=== PATIENT | male | born 1965 | race Caucasian/White ===

== ENCOUNTER 2018-01-21 16:59 | Emergency (ER) | payer OTHER ==
--- NOTE | 2018-01-21 18:14 | PDOC ---
Rapid Medical Evaluation Time Seen by Provider: 01/21/18 18:09 Medical Evaluation: Allergies Allergy/AdvReac Type Severity Reaction Status Date / Time No Known Allergies Allergy Verified 01/17/18 09:45 01/21/18 18:11 Pt is a 52 y/o M who presents to the ED with abdominal pain. Pt was seen in our ED on 01/17/18 for similar symptoms and had a negative CT scan. States the pain is back. States he had a hard bowel movement today. Denies fevers, chills, n/v/d , frequency, urgency and hematuria Exam: TTP of the LLQ, LUQ, ambulatory, AAOx3 Orders: Labs, urine, x-ray Pt to proceed to ED for further evaluation Discharge Disposition - Diagnosis Abdominal pain - Referrals - Patient Instructions - Post Discharge Activity
[2018-01-21 18:16] VITALS: TEMP 98.5; BMI 24.4
--- NOTE | 2018-01-21 19:16 | PDOC ---
History of Present Illness - General Chief Complaint: Constipation Stated Complaint: ABD PAIN Time Seen by Provider: 01/21/18 18:09 - History of Present Illness Initial Comments: 01/21/18 19:16 Mr. Xiong is a 52 yo male w/ pmh of HTN and CVA w/ right sided facial eye droop who presents for evaluation of abdominal pain today. Patient was evaluated 4 days ago for similar presentation and had negative CT scan, however reports pain came back. Last BM was today however hard and small. Patient currently complaining of left sided abdominal pain; reports he feels constipated although he has continued to have bowel movements. The patient denies chest pain, shortness of breath, headache and dizziness. Denies fever, chills, nausea, vomit, and diarrhea. Denies dysuria, frequency, urgency and hematuria. Allergies: NKDA Past History - Past Medical History Allergies/Adverse Reactions: Allergies Allergy/AdvReac Type Severity Reaction Status Date / Time No Known Allergies Allergy Verified 01/17/18 09:45 Home Medications: Ambulatory Orders Amlodipine Besylate 10 mg PO DAILY 01/17/18 Aspirin [Lo-Dose Aspirin EC] 81 mg PO DAILY 01/17/18 Hydralazine HCl 100 mg PO TID 01/17/18 Labetalol HCl [Normodyne -] 200 mg PO BID 01/17/18 Tramadol HCl 50 mg PO TID #15 tablet MDD 3 01/17/18 cloNIDine HCL 0.2 mg PO TID 01/17/18 Polyethylene Glycol 1000 [Polyethylene Glycol] 17 gm MC BID 01/21/18 Docusate Sodium [Colace] 100 mg PO DAILY #30 capsule 01/22/18 Polyethylene Glycol 3350 [Miralax (For Bowel Prep) -] 17 gm PO DAILY #1 bottle 01/22/18 CVA: Yes (may 05, 2003) COPD: No HTN: Yes - Suicide/Smoking/Psychosocial Hx Smoking History: Never smoked Have you smoked in the past 12 months: No Hx Alcohol Use: No Drug/Substance Use Hx: No Substance Use Type: None Review of Systems - Review of Systems Comments:: 01/21/18 19:18 GENERAL/CONSTITUTIONAL: No fever or chills. No weakness. HEAD, EYES, EARS, NOSE AND THROAT: No change in vision. No ear pain or discharge. No sore throat. CARDIOVASCULAR: No chest pain or shortness of breath RESPIRATORY: No cough, wheezing, or hemoptysis. GASTROINTESTINAL: +Constipation with abdominal pain as described. GENITOURINARY: No dysuria, frequency, or change in urination. MUSCULOSKELETAL: No joint or muscle swelling or pain. No neck or back pain. SKIN: No rash NEUROLOGIC: No headache, vertigo, loss of consciousness, or change in strength/ sensation. ENDOCRINE: No increased thirst. No abnormal weight change HEMATOLOGIC/LYMPHATIC: No anemia, easy bleeding, or history of blood clots. ALLERGIC/IMMUNOLOGIC: No hives or skin allergy. *Physical Exam - Vital Signs Last Vital Signs Temp Pulse Resp BP Pulse Ox 98.5 F 73 16 146/90 99 01/21/18 18:12 01/21/18 18:12 01/21/18 18:12 01/21/18 18:12 01/21/18 18:12 - Physical Exam Comments: 01/21/18 19:18 GENERAL: Awake, alert, and fully oriented, in no acute distress HEAD: No signs of trauma, normocephalic, atraumatic EYES: PERRLA, EOMI, sclera anicteric, conjunctiva clear ENT: Auricles normal inspection, hearing grossly normal, nares patent, oropharynx clear without exudates. Moist mucosa NECK: Normal ROM, supple, no lymphadenopathy, JVD, or masses LUNGS: No distress, speaks full sentences, clear to auscultation bilaterally HEART: Regular rate and rhythm, normal S1 and S2, no murmurs, rubs or gallops, peripheral pulses normal and equal bilaterally. ABDOMEN: +Appears distended, TTP in LLQ. Otherwise soft, normoactive bowel sounds. No guarding, no rebound. No masses EXTREMITIES: Normal inspection, Normal range of motion, no edema. No clubbing or cyanosis. NEUROLOGICAL: Cranial nerves II through XII grossly intact. Normal speech, normal gait, no focal sensorimotor deficits SKIN: Warm, Dry, normal turgor, no rashes or lesions noted. ED Treatment Course - LABORATORY CBC & Chemistry Diagram: 01/21/18 19:00 01/21/18 19:00 Medical Decision Making - Medical Decision Making 01/22/18 00:14 Mr. Xiong is a 52 yo male w/ pmh as described who presents for evaluation of constipation. Flat and upright confirms diagnosis, patient had CT 4 days ago negative for obstruction or acute process. Labs grossly wnl as below, patient given fleet enema in ED with some relief from symptoms. Patient also given oral contrast for symptomatic relief. Will discharge with Rx for miralax and constipation discharge instructions. No concern for acute process at this time. Laboratory Results - last 24 hr 01/21/18 01/21/18 01/21/18 19:00 19:00 22:35 WBC 8.6 RBC 4.73 Hgb 13.1 Hct 40.3 MCV 85.3 MCH 27.7 MCHC 32.5 RDW 13.7 Plt Count 386 MPV 7.0 L D Absolute Neuts (auto) 4.6 Neutrophils % 53.4 D Lymphocytes % 34.7 D Monocytes % 10.1 D Eosinophils % 1.3 D Basophils % 0.5 Nucleated RBC % 0 Sodium 138 Potassium 5.0 Chloride 107 Carbon Dioxide 25 Anion Gap 6 L BUN 24 H Creatinine 1.8 H Creat Clearance w eGFR 39.52 Random Glucose 109 H Calcium 9.3 Total Bilirubin 0.4 AST 16 D ALT 28 D Alkaline Phosphatase 89 Total Protein 7.8 Albumin 4.3 Urine Color Straw Urine Appearance Clear Urine pH 7.0 Ur Specific [place] 1.009 Urine Protein Negative Urine Glucose (UA) Negative Urine Ketones Negative Urine Blood Negative Urine Nitrite Negative Urine Bilirubin Negative Urine Urobilinogen Negative Ur Leukocyte Esterase Negative *DC/Admit/Observation/Transfer Diagnosis at time of Disposition: Abdominal pain Qualifiers: Abdominal location: left lower quadrant Qualified Code(s): R10.32 - Left lower quadrant pain Constipation Qualifiers: Constipation type: unspecified constipation type Qualified Code(s): K59.00 - Constipation, unspecified - Discharge Dispostion Disposition: HOME - Referrals Referrals: Dutch Funze MD [Staff Physician] - - Patient Instructions Printed Discharge Instructions: DI for Constipation Additional Instructions: Please follow-up with gastroenterology for further evaluation of your constipation. A medication has been called to your pharmacy; please take as proscribed. Return to ER if any increase in pain, fever, chills, or other concerning symptoms. - Post Discharge Activity
[2018-01-21 19:18] LABS: BASO % 0.5 % (0-2.0); EOS % 1.3 % (0-4.5); HEMATOCRIT 40.3 % (35.4-49); HEMOGLOBIN 13.1 GM/dL (11.7-16.9); LYMPH % 34.7 % (8-40); MCH 27.7 pg (25.7-33.7); MCHC 32.5 g/dl (32.0-35.9); MEAN CELL VOLUME 85.3 fl (80-96); MONO % 10.1 % (3.8-10.2); NEUT % 53.4 % (42.8-82.8); PLATELET COUNT 386 K/MM3 (134-434); RBC 4.73 M/mm3 (4.00-5.60); RDW 13.7 % (11.9-15.9); WHITE BLOOD COUNT 8.6 K/mm3 (4.0-10.0)
[2018-01-21 19:38] LABS: ALBUMIN 4.3 g/dl (3.4-5.0); ALK PHOS 89 U/L (45-117); ANION GAP 6 (8-16); BILIRUBIN,TOTAL 0.4 mg/dL (0.2-1.0); BLOOD UREA NITROGEN 24 mg/dL (7-18); CALCIUM 9.3 mg/dL (8.5-10.1); CHLORIDE 107 mmol/L (98-107); CO2 25 mmol/L (21-32); CREATININE 1.8 mg/dL (0.7-1.3); GLUCOSE,RANDOM 109 mg/dL (74-106); SGOT/AST 16 U/L (15-37); SGPT/ALT 28 U/L (12-78); SODIUM 138 mmol/L (136-145); TOT PROT 7.8 g/dl (6.4-8.2)
--- NOTE | 2018-01-21 20:45 | PDOC ---
Attending Attestation - HPI HPI: 01/21/18 21:16 The patient is a 52 year old male, with a significant past medical history of HTN and CVA (2002), who presents to the emergency department with, abdominal pain. He reported to the ED 01/17 for similar symptoms when he got a CT scan without any pertinent findings. He reports the pain to reoccur and a hard bowel movement today. Allergies: NKA <Ronny Sanchez - Last Filed: 01/21/18 21:16> - Resident Resident Name: Deniz Mora - ED Attending Attestation I have performed the following: I have examined & evaluated the patient, The case was reviewed & discussed with the resident, I agree w/resident's findings & plan, Exceptions are as noted - Physicial Exam PE: 01/21/18 22:21 Patient is awake and alert, well-nourished, in no distress Normocephalic, atraumatic Right ptosis CTA RRR Abdomen is soft, distended, tympanitic, with left mid and upper quadrant tenderness to deep palpation, no guarding or rebound is identified, no hernias, there is no CVA tenderness bilaterally. 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 In the ER, patient is nontoxic appearing with mildly distended and tympanitic abdomen. Abdominal series x-ray reveals large amount of retained stool throughout the colon. CBC shows no evidence of significant leukocytosis. CMP reveals mildly increased creatinine from 1.7 to 1.8. We'll administer fleets enema. Will hydrate. Will reassess. <Ari Powell - Last Filed: 01/21/18 22:22> Attestations - Attestations 01/21/18 21:16 Documentation prepared by Ronny Sanchez, acting as medical record retrieval specialist for Ari Powell MD. <Ronny Sanchez - Last Filed: 01/21/18 21:16>
[2018-01-21] MEDS ORDERED: SODIUM PHOSPHATE/NA BIPHOS 133 ML ENEMA PR ONE (21:24)
[2018-01-21] MEDS ORDERED: SODIUM CHLORIDE 1,000 ML IV STA (22:20)
[2018-01-21 23:15] LABS: URINE APPEARANCE CLEAR; URINE BILIRUBIN NEGATIVE (<2.0 mg/dL); URINE COLOR STRAW; URINE GLUCOSE (UA) NEGATIVE (NEGATIVE); URINE KETONE NEGATIVE (NEGATIVE); URINE LEUK ESTERASE NEGATIVE (NEGATIVE); URINE NITRITE NEGATIVE (NEGATIVE); URINE PROTEIN NEGATIVE (NEGATIVE); URINE UROBILINOGEN NEGATIVE mg/dL (0.2-1.0)
[2018-01-22 01:09] VITALS: BP 136/78; PULSE 89
== END 2018-01-22 01:09 | disposition home or self-care (01) ==
LOC: JER 16:59
PROC: 3E0337Z Introduction of Electrolytic and Water Balance Substance into Peripheral Vein, Percutaneous Approach (ICD-10-PCS; principal; 2018-01-21)
DX: K59.00 Constipation, unspecified (principal); I10 Essential (primary) hypertension; I69.892 Facial weakness following other cerebrovascular disease
CPT/HCPCS: 36415; 74019-TC-FY; 80053; 81003; 85025; 87086; 96360; 99283-25; J7030

== ENCOUNTER 2018-12-10 06:28 | Emergency (ER) | payer OTHER | END 2018-12-10 10:30 | disposition home or self-care (01) | LOC: JER 06:28 ==

== ENCOUNTER 2019-04-27 16:42 | Emergency (ER) | payer OTHER ==
--- NOTE | 2019-04-27 16:54 | PDOC ---
Rapid Medical Evaluation Time Seen by Provider: 04/27/19 16:46 Medical Evaluation: Allergies Allergy/AdvReac Type Severity Reaction Status Date / Time No Known Allergies Allergy Verified 12/10/18 06:40 04/27/19 16:49 CC: urethral pain. Negative cystoscopy 12/21 PE: deferred Orders: urine Patient will proceed to ED for further evaluation. Discharge Disposition - Diagnosis Penile pain - Referrals - Patient Instructions - Post Discharge Activity
[2019-04-27 17:01] VITALS: BP 120/74; PULSE 74; TEMP 98.2; BMI 22.3
[2019-04-27 18:11] LABS: PH,URINE 6.5 (5.0-8.0); URINE APPEARANCE CLEAR; URINE BILIRUBIN NEGATIVE (NEGATIVE); URINE COLOR YELLOW; URINE GLUCOSE (UA) NEGATIVE (NEGATIVE); URINE KETONE NEGATIVE (NEGATIVE); URINE LEUK ESTERASE NEGATIVE (NEGATIVE); URINE NITRITE NEGATIVE (NEGATIVE); URINE PROTEIN NEGATIVE (NEGATIVE); URINE UROBILINOGEN 0.2 mg/dL (0.2-1.0)
[2019-04-27] MEDS ORDERED: KETOROLAC TROMETHAMINE 30 MG/1 ML VIAL IM ONE (18:29)
[2019-04-27] MEDS ORDERED: KETOROLAC TROMETHAMINE 30 MG/1 ML VIAL ONE (18:29)
--- NOTE | 2019-04-27 18:33 | PDOC ---
History of Present Illness - General Chief Complaint: Penile Drainage Stated Complaint: PAIN Time Seen by Provider: 04/27/19 16:46 History Source: Patient Exam Limitations: No Limitations - History of Present Illness Initial Comments: 04/27/19 18:30 53 yo M w/ a h.o HTN, stroke comes in c/o constant penile pain for the past 2 weeks with difficulty ejaculating upon orgasm. NO relation with ejaculation/ erection/urination. He says that he has had this issue in the past, has seen a urologist and had a cystoscopy in December, was told that it was normal. He has an appointment a month from now but he cannot wait because of the pain. He has not taken any meds for pain. Denies burning/pain on urination, no penile discharge, no testicular pain, no abdominal pain, no back pain, no fever/chills, no NVD Past History - Past Medical History Allergies/Adverse Reactions: Allergies Allergy/AdvReac Type Severity Reaction Status Date / Time No Known Allergies Allergy Verified 04/27/19 16:50 Home Medications: Ambulatory Orders Amlodipine Besylate 10 mg PO DAILY 01/17/18 Aspirin [Lo-Dose Aspirin EC] 81 mg PO DAILY 01/17/18 Hydralazine HCl 100 mg PO TID 01/17/18 Labetalol HCl [Normodyne -] 200 mg PO BID 01/17/18 Tramadol HCl 50 mg PO TID #15 tablet MDD 3 01/17/18 cloNIDine HCL 0.2 mg PO TID 01/17/18 Polyethylene Glycol 1000 [Polyethylene Glycol] 17 gm MC BID 01/21/18 Docusate Sodium [Colace] 100 mg PO DAILY #30 capsule 01/22/18 Docusate Sodium [Colace] 100 mg PO DAILY #30 capsule 01/22/18 Polyethylene Glycol 3350 [Miralax (For Bowel Prep) -] 17 gm PO DAILY #1 bottle 01/22/18 Phenazopyridine HCl [Pyridium -] 100 mg PO DAILY #4 tablet 12/10/18 Ibuprofen 600 mg PO TID 3 Days #15 tablet 04/27/19 CVA: Yes (may 05, 2003) COPD: No HTN: Yes - Immunization History Immunization Up to Date: Yes - Psycho Social/Smoking Cessation Hx Smoking History: Never smoked Have you smoked in the past 12 months: No Hx Alcohol Use: No Drug/Substance Use Hx: No Substance Use Type: None Review of Systems - Review of Systems Able to Perform ROS?: Yes Constitutional: No: Chills, Fever, Malaise, Night Sweats HEENTM: No: Eye Pain, Recent change in vision, Throat Pain Respiratory: No: Cough, Shortness of Breath Cardiac (ROS): No: Chest Pain, Palpitations, Chest Tightness ABD/GI: No: Diarrhea, Nausea, Vomiting, Abdominal cramping : No: Dysuria, Discharge, Frequency, Flank Pain, Hematuria, Incontinence, Testicular Swelling Musculoskeletal: No: Back Pain Integumentary: No: Rash Neurological: No: Headache, Numbness, Dizziness Psychiatric: No: Change in Appetite Endocrine: No: Unexplained Weight Loss *Physical Exam - Vital Signs Last Vital Signs Temp Pulse Resp BP Pulse Ox 98.2 F 74 17 120/74 98 04/27/19 16:51 04/27/19 16:51 04/27/19 16:51 04/27/19 16:51 04/27/19 16:51 - Physical Exam General Appearance: Yes: Nourished. No: Apparent Distress HEENT: positive: JANNETH, Normal ENT Inspection, Normal Voice. negative: Pale Conjunctivae, Scleral Icterus (R), Scleral Icterus (L) Neck: positive: Supple. negative: Decreased range of motion, Tender midline Respiratory/Chest: negative: Respiratory Distress, Accessory Muscle Use Cardiovascular: positive: Regular Rate Gastrointestinal/Abdominal: positive: Normal Bowel Sounds, Soft. negative: Tender Male Genitalia: positive: other (uncircumcised male, No penile discharge, no testicular tenderness. No phimosis, no paraphimosis, no lesions. Wet underwear observed. When asked, pt unsure if it is urine.). negative: CVAT Musculoskeletal: positive: Normal Inspection. negative: CVA Tenderness, Decreased Range of Motion Extremity: positive: Normal Capillary Refill, Normal Inspection, Normal Range of Motion. negative: Tender, Pedal Edema Integumentary: positive: Normal Color, Dry. negative: Jaundice, Rash Neurologic: positive: Fully Oriented, Alert, Normal Mood/Affect ED Treatment Course - ADDITIONAL ORDERS Additional order review: Laboratory Results 04/27/19 17:41 Urine Color Yellow Urine Appearance Clear Urine pH 6.5 Ur Specific [place] 1.005 L Urine Protein Negative Urine Glucose (UA) Negative Urine Ketones Negative Urine Blood Negative Urine Nitrite Negative Urine Bilirubin Negative Urine Urobilinogen 0.2 Ur Leukocyte Esterase Negative Medical Decision Making - Medical Decision Making 04/27/19 18:36 53 yo w/ constant penile pain for 2 weeks, not associated with urination or ejaculation, or erection. Wet underwear, incontinence?. Denies back pain nor LE weakness/numbness/tingling/pain, no saddle anesthesia. Will check UA, Ucx and refer to a urologist, maybe someone who can see him sooner. UA negative TOradol ordered for pain. Will discharge with ibuprofen. 04/27/19 18:37 Discharge - Discharge Information Problems reviewed: Yes Clinical Impression/Diagnosis: Penile pain Condition: Stable Disposition: HOME - Additional Discharge Information Prescriptions: Ibuprofen 600 mg PO TID 3 Days #15 tablet - Follow up/Referral Referrals: Ed Yang [Primary Care Provider] - Logan Chávez MD [Staff Physician] - - Patient Discharge Instructions Additional Instructions: Make an appointment with your urologist. Return for worsening/concerning symptoms. - Post Discharge Activity
== END 2019-04-27 18:54 | disposition home or self-care (01) ==
LOC: JERFT 16:42
PROC: 3E0233Z Introduction of Anti-inflammatory into Muscle, Percutaneous Approach (ICD-10-PCS; principal; 2019-04-27)
DX: N48.89 Other specified disorders of penis (principal); I10 Essential (primary) hypertension; Z86.73 Personal history of transient ischemic attack (TIA), and cerebral infarction without residual deficits; Z79.82 Long term (current) use of aspirin
CPT/HCPCS: 36415; 81003; 87086; 87186; 87491; 87591; 99282-25

== ENCOUNTER 2019-05-20 10:03 | Emergency (ER) | payer OTHER ==
[2019-05-20 10:20] VITALS: TEMP 98.3; BMI 20.9
[2019-05-20] MEDS ORDERED: SODIUM CHLORIDE 1,000 ML IV STA (10:45)
[2019-05-20] MEDS ORDERED: ONDANSETRON 4 MG/2 ML VIAL IVPUSH ONE (11:03)
[2019-05-20] MEDS ORDERED: morphine CARPU-JECT 4 MG/1 ML DISP.SYRIN IVPUSH ONE (11:03)
[2019-05-20] MEDS ORDERED: morphine SULFATE 4 MG/ML VIAL ONE (11:08)
[2019-05-20] MEDS ORDERED: ONDANSETRON 4 MG/2 ML VIAL ONE (11:09)
[2019-05-20 11:15] LABS: BASO % 0.4 % (0-2.0); EOS % 1.5 % (0-4.5); HEMATOCRIT 39.7 % (35.4-49); HEMOGLOBIN 13.3 GM/dL (11.7-16.9); MCH 28.4 pg (25.7-33.7); MCHC 33.5 g/dl (32.0-35.9); MEAN CELL VOLUME 84.8 fl (80-96); MEAN PLT VOLUME 6.8 fl (7.5-11.1); MONO % 8.3 % (3.8-10.2); NEUT % 65.8 % (42.8-82.8); PLATELET COUNT 368 K/MM3 (134-434); RBC 4.69 M/mm3 (4.00-5.60); RDW 14.6 % (11.9-15.9); WHITE BLOOD COUNT 6.3 K/mm3 (4.0-10.0)
[2019-05-20 11:30] LABS: ALBUMIN 4.1 g/dl (3.4-5.0); BILIRUBIN,TOTAL 0.5 mg/dL (0.2-1); BLOOD UREA NITROGEN 18.6 mg/dL (7-18); CREATININE 1.4 mg/dL (0.55-1.3); POTASSIUM 3.3 mmol/L (3.5-5.1); TOT PROT 7.1 g/dl (6.4-8.2)
[2019-05-20 11:30] LABS: URINE APPEARANCE CLEAR; URINE BILIRUBIN NEGATIVE (NEGATIVE); URINE COLOR YELLOW; URINE GLUCOSE (UA) NEGATIVE (NEGATIVE); URINE KETONE NEGATIVE (NEGATIVE); URINE LEUK ESTERASE NEGATIVE (NEGATIVE); URINE NITRITE NEGATIVE (NEGATIVE); URINE PROTEIN NEGATIVE (NEGATIVE); URINE UROBILINOGEN 0.2 mg/dL (0.2-1.0)
--- NOTE | 2019-05-20 11:36 | PDOC ---
Documentation entered by Ana Laura Emerson SCRIBE, acting as scribe for Leatha Ho MD. Leatha Ho MD: This documentation has been prepared by the Idania evans Adrianna, SCRIBE, under my direction and personally reviewed by me in its entirety. I confirm that the documentation accurately reflects all work, treatment, procedures, and medical decision making performed by me. 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 Patient complains of left lower quadrant abdominal pain that is sharp, constant, and unbearable in nature. He reports associated decreased PO intake secondary to pain. Patient notes has had multiple episodes of loose, watery stool that began yesterday as well as this morning. He reports going to [facility] 2 days ago for the same complaint, but is unsure of his workup at the ER (cannot recall if he had CTAP done). He has tried taking Tylenol without any relief of symptoms. Patient notes he has been at the adult daycare (for rehab for CVA), and was advised to come to the [facility] for further evaluation. Denies fever, chills, chest pain, SOB, palpitation, dizziness, weakness, nausea , vomit, constipation, dysuria, hematuria, focal weakness/paresthesia, leg swelling/pain, rash. No recent travel or sick contacts. No testicular pain or scrotal pain. No new changes in medications. No suspicious food intake. Allergies: None Past Medical History/PSH: HTN, prior CVA, left inguinal hernia repair, prior G tube Social history: Lives with family. No tobacco, ETOH or drug use. Meds: as documented in EMR Family history: noncontributory PMD: Dr. Yang Review of systems Constitutional: no fevers or chills. No weakness HEENT: no headache or dizziness. No congestion. CVS: no cp or syncope. Resp: no sob. No cough. Gastrointestinal: +LLQ abdominal pain. +diarrhea +decreased PO. no nausea, vomiting. Genitourinary: no urinary sx, hematuria. MUSCULOSKELETAL: No joint pain and swelling. No neck or back pain. SKIN: no redness or skin changes, no discharge, no rash. No wounds. Hematologic: no easy bruising/bleeding. NEUROLOGIC: No headache, dizziness, LOC or altered mental status. No weakness, numbness or tingling. Psych: no anxiety or depression Allergic/Immunologic: no allergies All other systems reviewed and negative, or as documented in HPI. Physical exam General: Well appearing, awake and alert, NAD. HEENT: NCAT, PERRL, EOMI, clear conjunctiva, anicteric, moist mucus membranes, clear oropharynx, no oral lesions.. +chronic right upper eyelid droop and gaze palsy from prior CVA. Neck: neck supple, FROM Resp: CTAB, normal and even respirations, no respiratory distress CVS: RRR, no murmurs, 2+ peripheral pulses throughout, no peripheral edema Abdomen: +LLQ tenderness to palpation. +Old G-tube site at the LUQ. Soft, no rebound or guarding. No CVAT. : normal external genitalia, no lesions, normal testicular lie, no scrotal or testicular edema or tenderness. +cremaster reflex bilaterally. no hernia. Back: nontender, normal inspection and ROM MSK: no edema, LEVY x4, ROM intact. No clubbing or cyanosis. normal bulk and tone. Extremities: no calf tenderness Neuro: alert, oriented appropriately; no focal neurologic deficits Psych: Calm and cooperative Skin: warm and well perfused, cap refill <2 sec, normal color 05/20/19 11:36 05/20/19 13:09 Past History - Past Medical History Allergies/Adverse Reactions: Allergies Allergy/AdvReac Type Severity Reaction Status Date / Time No Known Allergies Allergy Verified 05/20/19 10:20 Home Medications: Ambulatory Orders Amlodipine Besylate 10 mg PO DAILY 01/17/18 Aspirin [Lo-Dose Aspirin EC] 81 mg PO DAILY 01/17/18 Hydralazine HCl 100 mg PO TID 01/17/18 Labetalol HCl [Normodyne -] 200 mg PO BID 01/17/18 Tramadol HCl 50 mg PO TID #15 tablet MDD 3 01/17/18 cloNIDine HCL 0.2 mg PO TID 01/17/18 Polyethylene Glycol 1000 [Polyethylene Glycol] 17 gm MC BID 01/21/18 Docusate Sodium [Colace] 100 mg PO DAILY #30 capsule 01/22/18 Docusate Sodium [Colace] 100 mg PO DAILY #30 capsule 01/22/18 Polyethylene Glycol 3350 [Miralax (For Bowel Prep) -] 17 gm PO DAILY #1 bottle 01/22/18 Phenazopyridine HCl [Pyridium -] 100 mg PO DAILY #4 tablet 12/10/18 Ibuprofen 600 mg PO TID 3 Days #15 tablet 04/27/19 Ciprofloxacin [Cipro -] 500 mg PO DAILY #2 tablet 05/20/19 Ondansetron HCl [Zofran] 4 mg PO TID PRN #6 tablet 05/20/19 Oxycodone HCl 10 mg PO Q8H PRN #10 tablet MDD 3 05/20/19 CVA: Yes (may 05, 2003) COPD: No HTN: Yes - Immunization History Immunization Up to Date: Yes - Psycho Social/Smoking Cessation Hx Smoking History: Never smoked Have you smoked in the past 12 months: No Hx Alcohol Use: No Drug/Substance Use Hx: No Substance Use Type: None *Physical Exam - Vital Signs Last Vital Signs Temp Pulse Resp BP Pulse Ox 98.3 F 72 16 106/68 96 05/20/19 10:16 05/20/19 10:16 05/20/19 10:16 05/20/19 10:16 05/20/19 10:16 ED Treatment Course - LABORATORY CBC & Chemistry Diagram: 05/20/19 11:00 05/20/19 11:00 - ADDITIONAL ORDERS Additional order review: Laboratory Results 05/20/19 05/20/19 05/20/19 11:13 11:00 11:00 WBC 6.3 RBC 4.69 Hgb 13.3 Hct 39.7 MCV 84.8 MCH 28.4 MCHC 33.5 RDW 14.6 Plt Count 368 MPV 6.8 L Absolute Neuts (auto) 4.1 Neutrophils % 65.8 D Lymphocytes % 24.0 D Monocytes % 8.3 Eosinophils % 1.5 Basophils % 0.4 Nucleated RBC % 0 Sodium 138 Potassium 3.3 L Chloride 103 Carbon Dioxide 27 Anion Gap 8 BUN 18.6 H Creatinine 1.4 H Est GFR (CKD-EPI)AfAm 65.09 Est GFR (CKD-EPI)NonAf 56.16 Random Glucose 122 H Calcium 9.0 Total Bilirubin 0.5 AST 20 ALT 35 Alkaline Phosphatase 63 Total Protein 7.1 Albumin 4.1 Lipase 232 Urine Color Yellow Urine Appearance Clear Urine pH 7.0 Ur Specific [place] 1.005 L Urine Protein Negative Urine Glucose (UA) Negative Urine Ketones Negative Urine Blood Negative Urine Nitrite Negative Urine Bilirubin Negative Urine Urobilinogen 0.2 Ur Leukocyte Esterase Negative 05/20/19 11:00 RBC 4.69 MCV 84.8 MCHC 33.5 RDW 14.6 MPV 6.8 L Neutrophils % 65.8 D Lymphocytes % 24.0 D Monocytes % 8.3 Eosinophils % 1.5 Basophils % 0.4 - RADIOLOGY Radiology Studies Ordered: Category Date Time Status ABDOMEN & PELVIS CT WITH CONTR [CT] Stat CT Scan 05/20/19 11:03 Ordered - Medications Given in the ED: ED Medications Discontinued Medications Generic Name Dose Route Start Last Admin Trade Name Freq PRN Reason Stop Dose Admin Morphine Sulfate 4 mg 05/20/19 11:03 05/20/19 11:20 Morphine Injection - IVPUSH 05/20/19 11:04 4 mg ONCE ONE Administration Ondansetron HCl 4 mg 05/20/19 11:03 05/20/19 11:21 Zofran Injection IVPUSH 05/20/19 11:04 4 mg ONCE ONE Administration Medical Decision Making - Medical Decision Making 05/20/19 11:35 Vital Signs Temp Pulse Resp BP Pulse Ox 98.3 F 72 16 106/68 96 05/20/19 10:16 05/20/19 10:16 05/20/19 10:16 05/20/19 10:16 05/20/19 10:16 DDx abdominal pain: Renal colic, biliary colic, metabolic/electrolyte derangements. GERD, PUD, esophageal spasm, pancreatitis, hepatitis, constipation , colitis, gastroenteritis, cholecystitis, UTI, pyelonephritis, ileus, SBO, medication side effect, hernia, appendicitis, diverticulitis, mesenteric ischemia. msk strain, mesenteric adenitis, psoas abscess. Laboratory results reviewed, CBC within normal limits, chemistry with baseline CKD, creatinine 1.4, potassium is low 3.3 will replete and supplement with p.o. dose as patient cannot tolerate p.o. at this time and best option for GI absorption LFTs and lipase within normal limits, UA neg. CT abdomen and pelvis with IV contrast to evaluate for acute diverticulitis versus intra-abdominal pathology/infection versus colitis given his persistent symptoms and clinical history/exam Abdomen Reassessment: The patient appears comfortable and states that pain is improved. Given medications zofran, morphine, IVF with clinical improvement. Tolerating oral intake. Vital signs reviewed and are normal. On repeat physical exam, the abdomen is soft and nontender, no suggestive findings for acute abdominal process at this time. CT with an equivocal mild concentric wall thickening along the splenic flexure and upper third of the descending colon, will correlate with colitis. There is evidence of colonic diverticulosis without evidence of acute diverticulitis, small umbilical hernia is noted with only fat, no evidence of obstruction. Remainder of CT imaging is unremarkable. No evidence of systemic toxicity, no fevers or bloody stools, will treat with antibiotics, Patient does not have any evidence of severe disease, no immunocompromised state or significant comorbidities no e/o to suggest C diff infection or serious bacterial infection, though with persistent sx can benefit from abx. though could still be underlying viral. All diagnostics tests reviewed and discussed with the patient. On repeat examination prior to discharge, the patient has a soft abdomen with no peritoneal findings. The patient was able to tolerate oral intake. given analgesia, ciprofloxacin x 1 dose for now, 2 more days, Will discharge patient with a short course of opiates. Went over the risks of the medication. Advised patient to not mix with other products containing acetaminophen, to not combine with alcohol, or other illicit drugs, to not drive or operate machinery, and to refrain from any activity that will require complete attention while taking this medication. The patient was advised that even though there is no evidence of a surgical emergency at this time, sometimes this is not visible on CT imaging or in the labs early in a disease course and that if there is additional pain they are to return for repeat evaluation. The patient stated understanding of this, has decision making capacity and is discharged in stable condition. The patient was instructed to return to the emergency department for re-evaluation in 24-48 hours and sooner if they feel worse in any way. 05/20/19 14:09 05/20/19 14:19 Discharge - Discharge Information Problems reviewed: Yes Clinical Impression/Diagnosis: Colitis Condition: Good Disposition: HOME - Admission No - Additional Discharge Information Prescriptions: Ciprofloxacin [Cipro -] 500 mg PO DAILY #2 tablet Ondansetron HCl [Zofran] 4 mg PO TID PRN #6 tablet PRN Reason: nausea/vomiting Oxycodone HCl 10 mg PO Q8H PRN #10 tablet MDD 3 PRN Reason: Severe Pain - Follow up/Referral Referrals: Ed Yang [Primary Care Provider] - Jim Echevarria MD [Staff Physician] - Levar Dickerson MD [Staff Physician] - Brett Sebastian DO [Staff Physician] - - Patient Discharge Instructions Patient Printed Discharge Instructions: DI for Diarrhea and Traveler's Diarrhea -- Adult, DI for Colitis Additional Instructions: 1) Please follow-up with your primary care doctor in the next 1-2 days. Please call tomorrow for for any urgent issues. gastroenterologists for followup also provided 2) You were given a copy of the tests performed today. Please bring the results with you and review them with your primary care doctor. Your laboratory / imaging results were normal, your CT showed possible acute colitis, which will be treated with 3 days of antibiotics. Please continue taking your home medications as directed. your medications on discharge include ciprofloxacin x 2 more days, first dose given here, so start taking tomorrow. . side effects may include upset stomach, abdominal pain, vomiting, or diarrhea. do not drink alcohol with your medications. Please take one tablet of OXYCODONE every 6 hours, as needed for SEVERE pain. Please do not take this medication unless you absolutely need it, it is very addictive. Please do not drive, operate heavy machinery or make important decisions while on this medication, it can cloud your judgement. this can also cause constipation so make sure to stay hydrated and use stool softener as needed. Please return to the emergency department immediately should you feel worse in any way or have any of the following symptoms: increasing or different abdominal pain, persistent vomiting, fevers or shaking chills. Please return to the emergency department for a recheck in 24-48 hours if the pain is persistent or worse so we can re-evaluate you and ensure that you are not developing a problem that would require surgery or hospitalization. ------ 1) Fatoumata un seguimiento con pisano mdico de atencin primaria en los prximos 1-2 de guzman. Llame maana para cualquier problema urgente. gastroenterlogos para el seguimiento tambin proporcion 2) Le dieron jacinta copia de las pruebas realizadas hoy. Traiga los resultados con usted y revselos con pisano mdico de atencin primaria. Los resultados de pisano laboratorio / imagen fueron normales, pisano TC mostr jacinta posible colitis aguda, que se tratar con 3 de guzman de antibiticos. Contine tomando fuentes medicamentos caseros segn las indicaciones. fuentes medicamentos al sunshine incluyen ciprofloxacina x 2 de guzman ms, la primera dosis administrada aqu, as que comience a tomarla maana. . Los efectos secundarios pueden incluir malestar estomacal, dolor abdominal, vmitos o diarrea. No tome alcohol con fuentes medicamentos. [place] jacinta tableta de OXYCODONE cada 6 horas, segn sea necesario para el dolor GRAVE. No tome agustina medicamento a menos que lo necesite absolutamente, es muy adictivo. No maneje, opere maquinaria pesada ni tome decisiones importantes mientras annalee agustina medicamento, puede nublar pisano juicio. [place] tambin puede causar estreimiento, as que asegrese de mantenerse hidratado y use ablandador de heces segn sea necesario. Regrese al departamento de emergencias de inmediato si se siente peor de alguna manera o tiene alguno de los siguientes sntomas: dolor abdominal creciente o diferente, vmitos persistentes, fiebre o escalofros. Regrese al departamento de emergencias para jacinta nueva revisin en 24-48 horas si el dolor es persistente o peor para que podamos reevaluarlo y asegurarnos de que no est desarrollando un problema que requiera ciruga u hospitalizacin. - Post Discharge Activity
[2019-05-20] MEDS ORDERED: oxyCODONE HCL 5 MG TABLET PO ONE (14:09)
[2019-05-20] MEDS ORDERED: CIPROFLOXACIN 500 MG TABLET (RESTRICTED TO ID) PO ONE (14:16)
[2019-05-20] MEDS ORDERED: oxyCODONE HCL 5 MG TABLET ONE (14:23)
[2019-05-20 15:07] VITALS: BP 123/76; PULSE 78
== END 2019-05-20 15:07 | disposition home or self-care (01) ==
LOC: JER 10:03
PROC: 3E033NZ Introduction of Analgesics, Hypnotics, Sedatives into Peripheral Vein, Percutaneous Approach (ICD-10-PCS; principal; 2019-05-20)
PROC: 3E0333Z Introduction of Anti-inflammatory into Peripheral Vein, Percutaneous Approach (ICD-10-PCS; 2019-05-20)
PROC: 3E0337Z Introduction of Electrolytic and Water Balance Substance into Peripheral Vein, Percutaneous Approach (ICD-10-PCS; 2019-05-20)
DX: K52.9 Noninfective gastroenteritis and colitis, unspecified (principal); I10 Essential (primary) hypertension; I69.898 Other sequelae of other cerebrovascular disease; H49.881 Other paralytic strabismus, right eye
CPT/HCPCS: 36415; 74177-TC; 80053; 81003; 83690; 85025; 87086; 96361; 96374; 96375; 99282-25; J7030

== ENCOUNTER 2019-05-22 10:39 | Emergency (ER) | payer OTHER ==
[2019-05-22] MEDS ORDERED: ACETAMINOPHEN 1000 MG/100 ML VIAL (NON FORMULARY) IVPB ONE (11:11)
[2019-05-22] MEDS ORDERED: SODIUM CHLORIDE 1,000 ML IV STA (11:11)
[2019-05-22 11:47] VITALS: BMI 20.9
--- NOTE | 2019-05-22 11:56 | PDOC ---
Documentation entered by Micky Figueroa SCRIBE, acting as scribe for Uziel Huerta MD. Uziel Huerta MD: This documentation has been prepared by the Henry evans Daniel, SCRIBE, under my direction and personally reviewed by me in its entirety. I confirm that the documentation accurately reflects all work, treatment, procedures, and medical decision making performed by me. 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 The patient was seen 2 days ago (05/20/19) for left sided abdominal pain, vomiting, and diarrhea. Patient was diagnosed with colitis and was discharged with a prescription for antibiotics and pain meds. Patient reports that his pain is the same left sided abdominal pain as before and notes that he has finished his antibiotics but has not noticed any improvement. He hasnt taken anything for pain. He notes no change in the pain since 2 days ago , no worsening pain, no migration of the pain. Patient denies headache, lightheadedness. Denies fever, chills. Denies chest pain, shortness of breath. Allergies: NKA Surgical history: Hernia repair Past History - Past Medical History Allergies/Adverse Reactions: Allergies Allergy/AdvReac Type Severity Reaction Status Date / Time No Known Allergies Allergy Verified 05/22/19 11:46 Home Medications: Ambulatory Orders Amlodipine Besylate 10 mg PO DAILY 01/17/18 Aspirin [Lo-Dose Aspirin EC] 81 mg PO DAILY 01/17/18 Hydralazine HCl 100 mg PO TID 01/17/18 Labetalol HCl [Normodyne -] 200 mg PO BID 01/17/18 cloNIDine HCL 0.2 mg PO TID 01/17/18 Polyethylene Glycol 1000 [Polyethylene Glycol] 17 gm MC BID 01/21/18 Ciprofloxacin [Cipro -] 500 mg PO DAILY #2 tablet 05/20/19 Ondansetron HCl [Zofran] 4 mg PO TID PRN #6 tablet 05/20/19 Oxycodone HCl 10 mg PO Q8H PRN #10 tablet MDD 3 05/20/19 Ciprofloxacin [Cipro -] 500 mg PO Q12H #10 tablet 05/22/19 metroNIDAZOLE [Flagyl -] 500 mg PO TID #15 tablet 05/22/19 CVA: Yes (may 05, 2003) COPD: No HTN: Yes - Immunization History Immunization Up to Date: Yes - Psycho Social/Smoking Cessation Hx Smoking History: Never smoked Have you smoked in the past 12 months: No Hx Alcohol Use: No Drug/Substance Use Hx: No Substance Use Type: None Review of Systems - Review of Systems Able to Perform ROS?: Yes Comments:: 05/22/19 11:14 GENERAL/CONSTITUTIONAL: No fever or chills. No weakness. HEAD, EYES, EARS, NOSE AND THROAT: No change in vision. No ear pain or discharge. No sore throat. CARDIOVASCULAR: No chest pain, no shortness of breath, no loss of consciousness RESPIRATORY: No cough, wheezing, or hemoptysis. GASTROINTESTINAL: +abdominal pain. +vomiting. +diarrhea. No constipation. GENITOURINARY: No dysuria, frequency, or change in urination. MUSCULOSKELETAL: No joint or muscle swelling or pain. No neck or back pain. SKIN: No rash NEUROLOGIC: No vertigo, no change in strength/sensation. ENDOCRINE: No increased thirst. No abnormal weight change. HEMATOLOGIC/LYMPHATIC: No anemia, easy bleeding, or history of blood clots. ALLERGIC/IMMUNOLOGIC: No hives or skin allergy. *Physical Exam - Physical Exam Comments: 05/22/19 12:01 "GENERAL: Awake, alert, and fully oriented, in no acute distress. HEAD: No signs of trauma EYES: PERRLA, EOMI, sclera anicteric, conjunctiva clear ENT: Auricles normal inspection, hearing grossly normal, nares patent, oropharynx clear without exudates. Moist mucosa NECK: Nontender, no stepoffs, Normal ROM, supple, no lymphadenopathy, JVD, or masses LUNGS: Breath sounds equal, clear to auscultation bilaterally. No wheezes, and no crackles HEART: Regular rate and rhythm, normal S1 and S2, no murmurs, rubs or gallops ABDOMEN: + LLQ TTP, normoactive bowel sounds. No guarding, no rebound. No masses EXTREMITIES: Normal range of motion, no edema. No clubbing or cyanosis. No cords, erythema, or tenderness NEUROLOGICAL: Cranial nerves II through XII intact. 5/5 strength and sensation in all extremities, Normal speech, normal gait, normal cerebellar function SKIN: Warm, Dry, normal turgor, no rashes or lesions noted. ED Treatment Course - LABORATORY CBC & Chemistry Diagram: 05/22/19 12:45 05/22/19 12:45 Medical Decision Making - Medical Decision Making 05/22/19 12:01 53 M with recently diagnosed colitis presenting with persistent abdominal pain after finishing his course of abx. Pt with LLQ TTP, consistent with diagnosis. Pt completed abx (was given 2 day course of cipro). Will likely need longer course. - Labs - IVF, pain control 05/22/19 13:39 Labs unremarkable Pt reassessed - pain is well controlled Will continue abx for 5 more days, add flagyl. Pt is well appearing, with normal vitals. Clinically stable for DC at this time. I discussed the physical exam findings, ancillary test results and final diagnoses with the patient. I answered all of the patient's questions. The patient was satisfied with the care received and felt comfortable with the discharge plan and treatment plan. The patient agrees to follow up with the primary care physician within 24-72 hours. Discharge - Discharge Information Problems reviewed: Yes Clinical Impression/Diagnosis: Abdominal pain, Colitis, Nausea Disposition: HOME - Admission No - Follow up/Referral Referrals: Ed Yang [Primary Care Provider] - - Patient Discharge Instructions Patient Printed Discharge Instructions: DI for Colitis Additional Instructions: You have an infection in your colon known as colitis. Take the antibiotics as prescribed to treat it. If you experience worsening pain, fevers, vomiting, or any other concerning symptoms, return to the ER immediately. Otherwise, follow up with your primary doctor within 48 hours. - Post Discharge Activity
[2019-05-22] MEDS ORDERED: ACETAMINOPHEN INJECTION 100 ML IVPB ONE (12:27)
[2019-05-22 12:54] LABS: BASO % 0.3 % (0-2.0); EOS % 1.2 % (0-4.5); HEMATOCRIT 41.2 % (35.4-49); HEMOGLOBIN 13.9 GM/dL (11.7-16.9); LYMPH % 22.2 % (8-40); MCH 28.6 pg (25.7-33.7); MCHC 33.6 g/dl (32.0-35.9); MEAN CELL VOLUME 85.1 fl (80-96); MEAN PLT VOLUME 6.8 fl (7.5-11.1); MONO % 9.3 % (3.8-10.2); PLATELET COUNT 383 K/MM3 (134-434); RBC 4.84 M/mm3 (4.00-5.60); RDW 14.6 % (11.9-15.9); WHITE BLOOD COUNT 8.5 K/mm3 (4.0-10.0)
[2019-05-22 13:22] LABS: ALBUMIN 4.4 g/dl (3.4-5.0); BILIRUBIN,TOTAL 0.7 mg/dL (0.2-1); BLOOD UREA NITROGEN 23.6 mg/dL (7-18); CALCIUM 9.6 mg/dL (8.5-10.1); CREATININE 1.6 mg/dL (0.55-1.3); POTASSIUM 3.2 mmol/L (3.5-5.1); TOT PROT 7.5 g/dl (6.4-8.2)
[2019-05-22 13:59] LABS: URINE APPEARANCE CLEAR; URINE BILIRUBIN NEGATIVE (NEGATIVE); URINE COLOR YELLOW; URINE GLUCOSE (UA) NEGATIVE (NEGATIVE); URINE KETONE NEGATIVE (NEGATIVE); URINE LEUK ESTERASE NEGATIVE (NEGATIVE); URINE NITRITE NEGATIVE (NEGATIVE); URINE PROTEIN TRACE (NEGATIVE); URINE UROBILINOGEN 0.2 mg/dL (0.2-1.0)
[2019-05-22 14:50] VITALS: BP 146/92; PULSE 63; TEMP 97.7
== END 2019-05-22 15:01 | disposition home or self-care (01) ==
LOC: JER 10:39
PROC: 3E033NZ Introduction of Analgesics, Hypnotics, Sedatives into Peripheral Vein, Percutaneous Approach (ICD-10-PCS; principal; 2019-05-22)
DX: K52.9 Noninfective gastroenteritis and colitis, unspecified (principal); R10.32 Left lower quadrant pain; R11.0 Nausea; I10 Essential (primary) hypertension; I69.898 Other sequelae of other cerebrovascular disease; H53.8 Other visual disturbances
CPT/HCPCS: 36415; 80053; 81003; 83605; 83690; 85025; 87086; 96374; 99284-25; J0131; J7030

== ENCOUNTER 2019-07-15 11:17 | Emergency (ER) | payer OTHER ==
[2019-07-15 11:28] VITALS: BP 135/78; PULSE 71; TEMP 98.5; BMI 20.9
--- NOTE | 2019-07-15 12:13 | PDOC ---
History of Present Illness - General Chief Complaint: Pain Stated Complaint: PAIN - History of Present Illness Initial Comments: 07/15/19 12:08 CHIEF COMPLAINT: pain HISTORY OF PRESENT ILLNESS: 54 yo M with hx of HTN presents to fast track with pain to L lower back. Patient reports having an abscess drained at [facility] on 07/04/19 and since then he has continued to have pain to the site of the abscess. Per patient, he has not been taking any antibiotics after I&D because he "was not prescribed anything." He denies any fever, chills, vomiting , diarrhea. Patient reports that he has an appointment with his PCP on Wednesday. No recent travel or sick contacts. PAST MEDICAL HISTORY: Denies past medical history FAMILY HISTORY: Denies SOCIAL HISTORY: Denies tobacco, alcohol, illicit drug use. SURGICAL HISTORY: Denies ALLERGIES: No known drug allergies REVIEW OF SYSTEMS General/Constitutional: Denies fever or chills. Denies weakness, weight change. HEENT: Denies change in vision. Denies ear pain or discharge. Denies sore throat. Cardiovascular: Denies chest pain or shortness of breath. Respiratory: Denies cough, wheezing, or hemoptysis. Gastrointestinal: Denies nausea, vomiting, diarrhea or constipation. Denies rectal bleeding. Genitourinary: Denies dysuria, frequency, or change in urination. Musculoskeletal: Denies joint or muscle swelling or pain. Denies neck or back pain. Skin: Pain to left lower back over site of abscess. Neurologic: Denies headache, vertigo, loss of consciousness, or loss of sensation. Psychiatric: Denies depression or anxiety. PHYSICAL EXAM General Appearance: Well-appearing, appropriately dressed. No apparent distress , no intoxication. HEENT: EOMI, PERRLA, normal ENT inspection, normal voice, TMs normal, pharynx normal. No conjunctival pallor. No photophobia, scleral icterus. Neck: Supple. Trachea midline. No tenderness, rigidity, carotid bruit, stridor , lymphadenopathy, or thyromegaly. Respiratory/Chest: Lungs CTAB. No shortness of breath, chest tenderness, respiratory distress, accessory muscle use. No crackles, rales, rhonchi, stridor , wheezing, dullness Cardiovascular: RRR. S1, S2. No JVD, murmur, bradycardia, tachycardia. Vascular Pulses: Dorsalis-Pedis (R): 2+, Dorsalis-Pedis (L): 2+ Gastrointestinal/Abdominal: Normal bowel sounds. Abdomen soft, non-distended. No tenderness or rebound tenderness. No organomegaly, pulsatile mass, guarding , hernia, hepatomegaly, splenomegaly. Lymphatic: No adenopathy, tenderness. Musculoskeletal/Extremities: Normal inspection. FROM of all extremities, normal capillary refill. Pelvis Stable. No CVA tenderness. No tenderness to extremities, pedal edema, swelling, erythema or deformity. Integumentary: Small 1cm healing abscess with TTP but no induration or fluctuance to L lower back. Appropriate color, dry, warm. No cyanosis, erythema, jaundice or rash Neurologic: ceramist II-XII intact. Fully oriented, alert. Appropriate mood/affect. Motor strength 5/5. No appreciable EOM palsy, facial droop or sensory deficit. Past History - Past Medical History Allergies/Adverse Reactions: Allergies Allergy/AdvReac Type Severity Reaction Status Date / Time No Known Allergies Allergy Verified 05/22/19 11:46 Home Medications: Ambulatory Orders Amlodipine Besylate 10 mg PO DAILY 01/17/18 Aspirin [Lo-Dose Aspirin EC] 81 mg PO DAILY 01/17/18 Hydralazine HCl 100 mg PO TID 01/17/18 Labetalol HCl [Normodyne -] 200 mg PO BID 01/17/18 cloNIDine HCL 0.2 mg PO TID 01/17/18 Polyethylene Glycol 1000 [Polyethylene Glycol] 17 gm MC BID 01/21/18 Ciprofloxacin [Cipro -] 500 mg PO DAILY #2 tablet 05/20/19 Ondansetron HCl [Zofran] 4 mg PO TID PRN #6 tablet 05/20/19 Oxycodone HCl 10 mg PO Q8H PRN #10 tablet MDD 3 05/20/19 Ciprofloxacin [Cipro -] 500 mg PO Q12H #10 tablet 05/22/19 Oxycodone HCl/Acetaminophen [Percocet 5-325 mg Tablet] 1 tab PO TID PRN #12 tablet MDD 3 tabs 05/22/19 metroNIDAZOLE [Flagyl -] 500 mg PO TID #15 tablet 05/22/19 Ibuprofen 600 mg PO QID #30 tablet 07/15/19 Sulfamethoxazole/Trimethoprim [Bactrim Ds -] 1 tab PO BID #14 tablet 07/15/19 CVA: Yes (may 05, 2003) COPD: No HTN: Yes - Immunization History Immunization Up to Date: Yes - Psycho Social/Smoking Cessation Hx Smoking History: Never smoked Have you smoked in the past 12 months: No Hx Alcohol Use: No Drug/Substance Use Hx: No Substance Use Type: None *Physical Exam - Vital Signs Last Vital Signs Temp Pulse Resp BP Pulse Ox 98.5 F 71 19 135/78 97 07/15/19 11:24 07/15/19 11:24 07/15/19 11:24 07/15/19 11:24 07/15/19 11:24 Medical Decision Making - Medical Decision Making 07/15/19 12:11 54 yo M with hx of HTN presents to fast track with pain to L lower back to site of healing abscess. -Bactrim Advised patient to take medication as prescribed and follow up with PCP as scheduled. Advised patient of signs and symptoms for return to ED. Patient verbalized understanding and agrees to plan. Discharge - Discharge Information Problems reviewed: Yes Clinical Impression/Diagnosis: Abscess Condition: Stable Disposition: HOME - Admission No - Additional Discharge Information Prescriptions: Ibuprofen 600 mg PO QID #30 tablet Sulfamethoxazole/Trimethoprim [Bactrim Ds -] 1 tab PO BID #14 tablet - Follow up/Referral Referrals: Ed Yang [Primary Care Provider] - - Patient Discharge Instructions Patient Printed Discharge Instructions: DI for Skin Abscess Additional Instructions: Please take medications as prescribed and complete the entire course of antibiotics, even if your symptoms improve. Follow up with your primary care doctor on WEDNESDAY as scheduled. If you develop any fever, chills, nausea, vomiting, diarrhea, or the site of your abscess increases in size, becomes hot, red, or more swollen, please return to the ER immediately. - Post Discharge Activity
[2019-07-15] MEDS ORDERED: IBUPROFEN 600 MG TABLET (FP) PO ONE ×2 (12:32)
== END 2019-07-15 12:40 | disposition home or self-care (01) ==
LOC: JER 11:17 → JERFT 11:17
DX: L02.212 Cutaneous abscess of back [any part, except buttock and flank] (principal); I10 Essential (primary) hypertension; Z86.73 Personal history of transient ischemic attack (TIA), and cerebral infarction without residual deficits; Z79.82 Long term (current) use of aspirin
CPT/HCPCS: 99281-25

== ENCOUNTER 2020-02-10 10:24 | Emergency (ER) | payer OTHER ==
[2020-02-10 10:44] VITALS: BMI 23.7
[2020-02-10] MEDS ORDERED: SODIUM CHLORIDE 1,000 ML IV STA (10:51)
[2020-02-10] MEDS ORDERED: ACETAMINOPHEN 1000 MG/100 ML VIAL (NON FORMULARY) IVPB ONE ×2 (10:51→15:44)
--- NOTE | 2020-02-10 10:53 | PDOC ---
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 Patient been seen in this ER multiple times in past for this same left sided abdominal pain a year ago and diagnosed with colitis with a prescription for Abx. States pain is both in the left lower and left upper regions. Pain worsened significantly last night. Patient states pain doesn't rad iate. Also hasn't taken any meds for this pain. Patient states this pain has made him lose his appetite. Denies nausea, vomiting, fevers, SOB, dysuria, frequency, or urgency. Denies chest pain, headache, blurry vision. PCP: Ed Yang Allergies: NKA, NKDA Surgical history: Hernia repair, hx of trach, hx of G-tube Social Hx: Denies smoking, drinking, or other substance abuse Meds: Amlodipine, aspirin, hydralazine, lebatalol, clonidine Past History - Medical History Allergies/Adverse Reactions: Allergies Allergy/AdvReac Type Severity Reaction Status Date / Time No Known Allergies Allergy Verified 02/10/20 10:40 Home Medications: Ambulatory Orders Amlodipine Besylate [Norvasc -] 10 mg PO DAILY 02/10/20 Aspirin [ASA -] 81 mg PO DAILY 02/10/20 Clonidine HCl 0.2 mg PO BID 02/10/20 Hydralazine HCl 50 mg PO TID 02/10/20 Hydrochlorothiazide [Hctz -] 25 mg PO DAILY 02/10/20 Labetalol HCl 2 tab PO BID 02/10/20 CVA: Yes (may 05, 2003) COPD: No HTN: Yes - Immunization History Immunization Up to Date: Yes - Psycho-Social/Smoking History Smoking History: Never smoked Have you smoked in the past 12 months: No Information on smoking cessation initiated: No - Substance Abuse Hx (Audit-C & DAST Scrn) How often the patient has a drink containing alcohol: Never Score: In Men: 4 or > Positive; In Women: 3 or > Positive: 0 Screen Result (Pos requires Nsg. Audit-10AR): Negative In the last yr the pt used illegal drug/Rx for NonMed reason: No Score: Yes response is considered Positive: 0 Screen Result (Positive result requires Nsg. DAST-10): Negative Review of Systems - Review of Systems Able to Perform ROS?: Yes Comments:: CONSTITUTIONAL: Absent: fever, no chills, no fatigue EYES: Absent: visual changes ENT: Absent: ear pain, no sore throat CARDIOVASCULAR: Absent: chest pain, no palpitations RESPIRATORY: Absent: cough, no SOB GI: Present: Abdominal pain, diarrhea Absent: no nausea, no vomiting, no constipation GENITOURINARY: Absent: dysuria, no frequency, no hematuria MUSKULOSKELETAL: Absent: back pain, no arthralgia, no myalgia SKIN: Absent: rash NEURO: Absent: headache *Physical Exam - Vital Signs Last Vital Signs Temp Pulse Resp BP Pulse Ox 98.8 F 69 17 145/90 97 02/10/20 10:35 02/10/20 10:35 02/10/20 10:35 02/10/20 10:35 02/10/20 10:35 - Physical Exam GENERAL: Well-appearing, well-nourished. No apparent distress. HEENT: Normocephalic, atraumatic. PERRL, EOM intact. CARDIOVASCULAR: Normal S1, S2. Regular rate and rhythm. PULMONARY: No evidence of respiratory distress. Lungs clear to auscultation bilaterally. No wheezing, rales or rhonchi. ABDOMEN: There is significant LLQ abdominal TTP. Overall, the abdomen is soft, non- distended, and not peritoneal. EXTREMITIES: Normal ROM in all four extremities. No gross deformities. SKIN: Warm, dry. No rash NEUROLOGICAL: There is a right facial droop. Alert, awake, appropriate. No deficits to light touch in face, upper extremities and lower extremities. No motor deficits in the upper extremities and lower extremities. Normal speech. PSYCHIATRIC: Cooperative. Appropriate mood and affect. 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 Patient been seen in this ER multiple times in past for this same left sided abdominal pain a year ago and diagnosed with colitis with a prescription for Abx. States pain is both in the left lower and left upper regio ns. Pain worsened significantly last night. Patient states pain doesn't radiate. Also hasn't taken any meds for this pain. Patient states this pain has made him lose his appetite. Vital Signs Temp Pulse Resp BP Pulse Ox 98.8 F 69 17 145/90 97 02/10/20 10:35 02/10/20 10:35 02/10/20 10:35 02/10/20 10:35 02/10/20 10:35 DDx IBNLT: Diverticulitis, renal colic, UTI, pylo, hernia, diverticulosis, gastroenteritis Plan: Labs, urine, analgesia, IV hydration, CTAP, re-assess EKG: Sinus rate of 66, pr 184, borderline wide complexes, qrs 116, normal axis, LAE, no ventricular hypertrophy, No significant ST elevations or depressions, normal T waves, QTc 486 Labs: Labs are unremarkable and WNL. Patient has an elevated Cr which appears to be at his baseline. Lactic Acid WNL. CTAP: No evidence of acute pathology PO Challenge: Patient at a sandwich and drank a juice very happily, did not vomit for 1 hour after eating. MDM: The patient appears stable, non-toxic, has normal vitals, normal labs, normal urine. I do not believe there is an emergent process going on with the patient at the present time. I have consulted the admitting doctor and asked if this is a patient that should be admitted but the consulting doctor Edward agrees the patient is well appearing and does not require hospital admission at the present time. Dr. Leon spoke with the patient's Bleach Analyst Dr. Dukes who did not have any additional recommendations at the present time and said he can see the patient as an outpatient this coming week. The patient appears clinically sober, has no evidence of clinical intoxication, is A&O x4, has no sustained nystagmus, and appears to be capable and have capacity to make reasonable decisions. The patient states they are currently in the emergency department, knows who the president is, states the correct time, correct day, and correct month. The patient is ambulatory in ER and has walked around the nursing station multiple times with a straight and steady gait, and is not ataxic. Tolerating PO well, ate a sandwich and drank juice. Denies having any SI or HI. Patient states will not be driving home. I discussed the physical exam findings, ancillary test results and final diagnoses with the patient. I answered all of the patient's questions. The patient was satisfied with the care received and felt comfortable with the discharge plan and treatment plan. The patient will call their primary care physician within 24 hours to arrange follow-up and will return to the Emergency Department with any new, persistent or worsening symptoms. Dispo: Home with PCP and GI follow up this week. Strict return precautions discussed. Please note, this clinical encounter is taking place during a federal and state health care emergency attributable to the novel [place] Virus pandemic. The [place] of the Department of Health and Human Services has declared, pursuant to the Public Health Service Act 319F-3 (42 U.S.C. 247d-6d), that a covered persons activities related to medical countermeasures against COVID-19 will be immune from liability under Federal and State law. Discharge - Discharge Information Problems reviewed: Yes Clinical Impression/Diagnosis: Intractable abdominal pain Condition: Stable - Admission Yes - Follow up/Referral Referrals: Ed Yang [Primary Care Provider] - Yosvany Dukes MD [Staff Physician] - - Patient Discharge Instructions Patient Printed Discharge Instructions: DI for Abdominal Pain-Adult Additional Instructions: You came into the ER with abdominal pain. We looked at your bloodwork, urine, and did a cat scan which were all normal We do not believe you have something serious going on. take tylenol for your pain control. If the pain does not go away in the next 24 to 48 hours come back to the ER immediately as this might mean you need more imaging tests and to be further worked up. You must schedule an appointment with Dr. Dukes your roller hand this week like we discussed. You must return to the Emergency Department with any new complaints, if your symptoms persist and do not improve or if you develop any other new or worsening concerns. You can take over the counter Tylenol as needed for pain. Take as directed on the package insert. Do not exceed the recommended dosage. As discussed, please call to follow up with your Primary Care physician in 1-2 days to discuss what happened to you in the emergency room, and make sure you are being looked after and taken care of. Your emergency room visit is not complete without this follow up appointment. Please read the attached handouts for further information about your ER visit and what you should do moving forward. Thank you for coming to the [facility]. We hope you feel better soon! Print Language: MOZAMBICAN - Post Discharge Activity
[2020-02-10] MEDS ORDERED: ACETAMINOPHEN INJECTION 100 ML IVPB ONE ×2 (11:00→15:51)
[2020-02-10 11:22] LABS: BASO % 0.6 % (0-2.0); EOS % 1.1 % (0-4.5); HEMATOCRIT 43.5 % (35.4-49); HEMOGLOBIN 14.6 GM/dL (11.7-16.9); LYMPH % 20.2 % (8-40); MCH 29.8 pg (25.7-33.7); MCHC 33.7 g/dl (32.0-35.9); MEAN CELL VOLUME 88.4 fl (80-96); MEAN PLT VOLUME 7.3 fl (7.5-11.1); MONO % 6.4 % (3.8-10.2); NEUT % 71.7 % (42.8-82.8); PLATELET COUNT 336 K/MM3 (134-434); RBC 4.92 M/mm3 (4.00-5.60); RDW 13.6 % (11.9-15.9); WHITE BLOOD COUNT 9.4 K/mm3 (4.0-10.0)
[2020-02-10] MEDS ORDERED: morphine CARPU-JECT 4 MG/1 ML DISP.SYRIN IVPUSH ONE ×3 (11:26→14:02)
[2020-02-10] MEDS ORDERED: MORPHINE SULFATE 2 MG/ML VIAL ONE ×2 (11:29→12:08)
[2020-02-10 11:30] LABS: INR 1.03 (0.83-1.09); PROTHROMBIN TIME (PATIENT) 12.1 SEC (9.7-13.0)
[2020-02-10 11:33] LABS: ACTIVATED PTT 30.3 SECONDS (25.2-36.5)
[2020-02-10 11:49] LABS: ALBUMIN 4.6 g/dl (3.4-5.0); BILIRUBIN,TOTAL 0.7 mg/dL (0.2-1); BLOOD UREA NITROGEN 24.4 mg/dL (7-18); CALCIUM 9.6 mg/dL (8.5-10.1); CHLORIDE 101 mmol/L (98-107); CREATININE 1.5 mg/dL (0.55-1.3); GLUCOSE,RANDOM 119 mg/dL (74-106); LIPASE 252 U/L (73-393); MAGNESIUM 2.5 mg/dL (1.8-2.4); PHOSPHOROUS 2.5 mg/dL (2.5-4.9); POTASSIUM 3.8 mmol/L (3.5-5.1); SGOT/AST 24 U/L (15-37); SODIUM 139 mmol/L (136-145); TOT PROT 7.7 g/dl (6.4-8.2)
[2020-02-10 11:51] LABS: ALK PHOS 65 U/L (45-117); ANION GAP 6 MMOL/L (8-16); CO2 31 mmol/L (21-32); SGPT/ALT 40 U/L (13-61)
--- NOTE | 2020-02-10 13:23 | EKG ---
Test Reason : Blood Pressure : / mmHG Vent. Rate : 066 BPM Atrial Rate : 066 BPM P-R Int : 184 ms QRS Dur : 116 ms QT Int : 464 ms P-R-T Axes : 059 049 022 degrees QTc Int : 486 ms NORMAL SINUS RHYTHM POSSIBLE LEFT ATRIAL ENLARGEMENT SEPTAL INFARCT (CITED ON OR BEFORE 05-MAY-2016) ABNORMAL ECG WHEN COMPARED WITH ECG OF 05-MAY-2016 14:23, ST NO LONGER DEPRESSED IN LATERAL LEADS T WAVE INVERSION NO LONGER EVIDENT IN ANTEROLATERAL LEADS QT HAS SHORTENED Confirmed by Flor Cid ([id number]) on 02/10/2020 1:22:49 PM Referred By: Confirmed By:Flor Cid
[2020-02-10 13:40] LABS: URINE APPEARANCE CLEAR; URINE BILIRUBIN NEGATIVE (NEGATIVE); URINE COLOR YELLOW; URINE GLUCOSE (UA) NEGATIVE (NEGATIVE); URINE KETONE NEGATIVE (NEGATIVE); URINE LEUK ESTERASE NEGATIVE (NEGATIVE); URINE NITRITE NEGATIVE (NEGATIVE); URINE PROTEIN NEGATIVE (NEGATIVE); URINE UROBILINOGEN 0.2 mg/dL (0.2-1.0)
[2020-02-10 13:41] VITALS: TEMP 97.8
[2020-02-10] MEDS ORDERED: morphine SULFATE 4 MG/ML VIAL ONE (13:54)
--- NOTE | 2020-02-10 15:07 | PDOC ---
Documentation entered by Reynaldo Miles SCRIBE, acting as scribe for Jaimie Wu MD. Jaimie Wu MD: This documentation has been prepared by the Ginger evans Aaron, SCRIBE, under my direction and personally reviewed by me in its entirety. I confirm that the documentation accurately reflects all work, treatment, procedures, and medical decision making performed by me. Attending Attestation - Resident Resident Name: Arnoldo Nelson - HPI HPI: 02/10/20 11:37 The patient is a 54 year old male with a significant PMH of HTN, R sided CVA (2016), and diverticulitis who presents to the emergency department with LLQ 8/10 abdominal pain and associated diarrhea for the last 3 days. Patient reports pain is not worsened by eating, but has a decreased appetite. Patient also reports melena for the last two days. Patient denies radiation of pain, SOB, vomiting, nausea, fever, or any urinary symptoms. Allergies: NKDA Past surgical history: Hernia repair, hx of trach, hx of G-tube PCP: Ed Yang - Physicial Exam PE: 02/10/20 15:00 Agree with resident exam. patient appears uncomfortable. Abdomen is soft, non distended, with diffuse L sided tenderness. No guarding or rebound. - Medical Decision Making 02/10/20 15:03 Pt presents to the ED complaining of diarrhea and LLQ abdominal pain. Denies fever, nausea or vomiting. Patient continues to complain of pain despite multiple doses of opiates. Labs including lactate are normal. UA is negative. CT scan without contrast is normal. Case discussed with Dr. Harper by resident--he does not feel that scan with contrast will add any additional information unless there is suspicion for mesenteric ischemia. Mesenteric ischemia is low on the differential since lactate is normal despite ongoing symptoms and patient has no risk factors. Will admit to medicine for intractable pain for serial abdominal exams and continued monitoring. Discharge - Discharge Information Problems reviewed: Yes Clinical Impression/Diagnosis: Intractable abdominal pain Condition: Stable Disposition: HOME - Follow up/Referral Referrals: Yosvany Dukes MD [Staff Physician] - Ed Yang [Primary Care Provider] - - Patient Discharge Instructions Patient Printed Discharge Instructions: DI for Abdominal Pain-Adult Additional Instructions: You came into the ER with abdominal pain. We looked at your bloodwork, urine, and did a cat scan which were all normal We do not believe you have something serious going on. take tylenol for your pain control. If the pain does not go away in the next 24 to 48 hours come back to the ER immediately as this might mean you need more imaging tests and to be further worked up. You must schedule an appointment with Dr. Dukes your follow up specialist this week like we discussed. You must return to the Emergency Department with any new complaints, if your symptoms persist and do not improve or if you develop any other new or worsening concerns. You can take over the counter Tylenol as needed for pain. Take as directed on the package insert. Do not exceed the recommended dosage. As discussed, please call to follow up with your Primary Care physician in 1-2 days to discuss what happened to you in the emergency room, and make sure you are being looked after and taken care of. Your emergency room visit is not co mplete without this follow up appointment. Please read the attached handouts for further information about your ER visit and what you should do moving forward. Thank you for coming to the [facility]. We hope you feel better soon! Print Language: OMANI - Post Discharge Activity
[2020-02-10 16:59] VITALS: BP 152/87; PULSE 78
--- NOTE | 2020-02-10 17:50 | HOSP ---
Subjective - Review of Symptoms Subjective: SUB: 54yo M with h/o of previous colitis admissions who presented to the ER for abdominal pain. Patient was noted to have unremitting abdominal pain with multiple opiate doses. I was asked to see the patient to aid in further medical management options. Patient at time of my visit was subjectively having abdominal pain. He reported watery diarrhea episodes without any blood or mucus. His abd pain was not alleviated with defecation. Patient's last colitis treatment was about 3-5 mo ago where he received a short course of antibiotics and resolved. Patient currently has more controlled abd pain and has not had any episodes of vomiting or nausea. Patient is hungry and thirsty and would like to trial food/drink. Patient denies any unusual foods or travel PE: GEN: NAD, awake, alert, oriented, anxious HEENT: NC/AT, conjunctiva clear, MMM LUNG: CTA b/l CARD: RRR no murmurs ABD: Soft, hyperactive BS, minimal tenderness, umbilical hernia freely reducible, no guarding, no rebound, no hepatomegaly EXT: 2+ distal pulses b/l, no edema, no calf tenderness Skin: No rashes/lesions A/P: Possible viral gastroenteritis without clinically significant CT findings Possible narcotic bowel syndrome --CT without any abnormalities --Bloodwork unrevealing --Hemoccult performed to r/o any microscopic blood --Patient sees Dr. Dukes and would be available this week for follow-up --Last colonoscopy 2017, however reportedly normal findings --Given patient's improvement without significant medical underlying conditions we should trial him on PO diet. If patient is able to tolerate food/drink then he can be discharged with close GI follow-up. He can use Tylenol and non-bernardo cotic medications for the pain and must stay hydrated at home. Case discussed with ER Yusef Leon, DO - IM Physical Examination Vital Signs: Vital Signs Temperature 97.8 F 02/10/20 13:40 Pulse Rate 78 02/10/20 16:58 Respiratory Rate 18 02/10/20 13:40 Blood Pressure 152/87 02/10/20 16:58 O2 Sat by Pulse Oximetry (%) 96 02/10/20 16:58 Labs: CBC, BMP 02/10/20 11:00 02/10/20 11:00
== END 2020-02-10 18:00 | disposition home or self-care (01) ==
LOC: JER 10:24
PROC: 3E033NZ Introduction of Analgesics, Hypnotics, Sedatives into Peripheral Vein, Percutaneous Approach (ICD-10-PCS; principal; 2020-02-10)
PROC: 3E033GC Introduction of Other Therapeutic Substance into Peripheral Vein, Percutaneous Approach (ICD-10-PCS; 2020-02-10)
PROC: 3E0337Z Introduction of Electrolytic and Water Balance Substance into Peripheral Vein, Percutaneous Approach (ICD-10-PCS; 2020-02-10)
DX: R10.9 Unspecified abdominal pain (principal)
CPT/HCPCS: 36415; 74176-TC; 80053; 81003; 82272; 83605; 83690; 83735; 84100; 84484; 85025; 85610; 85730; 86850; 86900; 86901; 87086; 93005; 93010; 99285-25; J0131

== ENCOUNTER 2020-02-13 10:51 | Emergency (ER) | payer OTHER ==
--- NOTE | 2020-02-13 11:03 | PDOC ---
History of Present Illness <Guillermo Jerez - Last Filed: 02/13/20 12:31> - History of Present Illness Initial Comments: 54 YOM h/o CVA presents with abdominal pain of 4 days duration. Patient was seen at this ER 4 days prior to arrival for similar symptoms. He was given CT, labs, and morphine. Labs and imagining revealed no abnormalities, and morphine relieved his pain for a short period. He was discharged to home with instructions to use tylenol to control his pain and follow up with GI. Patient reports that this AM he woke up with similar pain to before but this time of greater intensity. He also mentions that he woke up this AM feeling feverish. He denies CP, SOB, N/V/D, chills. His last BM was this am and he continues to pass flatus. Constitutional: No Weight Change, No Fever, No Chills, No Night Sweats, No Fatigue, No Malaise ENT/Mouth: No Hearing Changes, No Ear Pain, No Nasal Congestion, No Sinus Pain, No Hoarseness, No sore throat, No Rhinorrhea, No Swallowing Difficulty Eyes: No Eye Pain, No Swelling, No Redness, No Foreign Body, No Discharge, No Vision Changes Cardiovascular: No Chest Pain, No SOB, No PND, No Dyspnea on Exertion, No Orthopnea, No Claudication, No Edema, No Palpitations Respiratory: No Cough, No Sputum, No Wheezing, No Smoke Exposure, No Dyspnea Gastrointestinal: No Nausea, No Vomiting, No Diarrhea, No Constipation, No Heartburn, No Anorexia, No Dysphagia, No Hematochezia, No Melena, No Flatulence, No Jaundice Genitourinary: No Dysmenorrhea, No DUB, No Dyspareunia, No Dysuria, No Urinary Frequency, No Hematuria, No Urinary Incontinence, No Urgency, No Flank Pain, No Urinary Flow Changes, No Hesitancy Musculoskeletal: No Arthralgias, No Myalgias, No Joint Swelling, No Joint Stiffness, No Back Pain, No Neck Pain, No Injury History Skin: No Skin Lesions, No Pruritis, No Hair Changes, No Breast/Skin Changes, No Nipple Discharge Neuro: No Weakness, No Numbness, No Paresthesias, No Loss of Consciousness, No Syncope, No Dizziness, No Headache, No Coordination Changes, No Recent Falls Psych: No Anxiety/Panic, No Depression, No Insomnia, No Personality Changes, No Delusions, No Rumination, No SI/HI/AH/VH, No Social Issues, No Memory Changes, No Violence/Abuse Hx., No Eating Concerns Heme/Lymph: No Bruising, No Bleeding, No Transfusions History, No Lymphadenopathy Endocrine: No Polyuria, No Polydipsia, No Temperature Intolerance 02/13/20 18:12 <Cheo Moore - Last Filed: 02/13/20 18:20> - General Chief Complaint: Pain Stated Complaint: ABDOMINAL PAIN Time Seen by Provider: 02/13/20 11:02 Past History <Guillermo Jerez - Last Filed: 02/13/20 12:31> - Medical History CVA: Yes (may 05[birth year] 2003) COPD: No HTN: Yes - Immunization History Immunization Up to Date: Yes - Psycho-Social/Smoking History Smoking History: Never smoked Have you smoked in the past 12 months: No <Cheo Moore - Last Filed: 02/13/20 18:20> - Medical History Allergies/Adverse Reactions: Allergies Allergy/AdvReac Type Severity Reaction Status Date / Time No Known Allergies Allergy Verified 02/13/20 11:12 Home Medications: Ambulatory Orders Amlodipine Besylate [Norvasc -] 10 mg PO DAILY 02/10/20 Aspirin [ASA -] 81 mg PO DAILY 02/10/20 Clonidine HCl 0.2 mg PO BID 02/10/20 Hydralazine HCl 50 mg PO TID 02/10/20 Hydrochlorothiazide [Hctz -] 25 mg PO DAILY 02/10/20 Labetalol HCl 2 tab PO BID 02/10/20 *Physical Exam - Vital Signs Last Vital Signs Temp Pulse Resp BP Pulse Ox 100.1 F H 71 18 129/79 100 02/13/20 10:55 02/13/20 10:55 02/13/20 10:55 02/13/20 10:55 02/13/20 10:55 <Guillermo Jerez - Last Filed: 02/13/20 12:31> - Physical Exam General Appearance: Yes: Nourished, Appropriately Dressed, Apparent Distress HEENT: positive: EOMI, JANNETH, Normal ENT Inspection, Normal Voice Neck: positive: Trachea midline, Normal Thyroid Respiratory/Chest: positive: Lungs Clear, Normal Breath Sounds Cardiovascular: positive: Regular Rhythm, Regular Rate, S1, S2 Gastrointestinal/Abdominal: positive: Normal Bowel Sounds, Tender, Protuberent, Tenderness Musculoskeletal: positive: Normal Inspection Extremity: positive: Normal Capillary Refill, Normal Inspection, Normal Range of Motion Integumentary: positive: Normal Color, Dry, Warm Neurologic: positive: woodwind instruments inspector II-XII NML intact, Fully Oriented, Alert, Normal Mood/Affect, Normal Response, Motor Strength 5/5 <Cheo Moore - Last Filed: 02/13/20 18:20> ED Treatment Course - LABORATORY CBC & Chemistry Diagram: 02/13/20 11:16 02/13/20 11:16 - ADDITIONAL ORDERS Additional order review: Laboratory Results 02/13/20 11:16 Sodium 137 Potassium 3.8 Chloride 101 Carbon Dioxide 29 Anion Gap 6 L BUN 23.0 H Creatinine 1.4 H Est GFR (CKD-EPI)AfAm 64.63 Est GFR (CKD-EPI)NonAf 55.77 Random Glucose 124 H Calcium 9.8 Total Bilirubin 0.7 AST 32 ALT 39 Alkaline Phosphatase 63 Total Protein 7.6 Albumin 4.4 Lipase 284 02/13/20 11:16 RBC 4.86 MCV 87.5 MCHC 32.8 RDW 13.7 MPV 7.6 Neutrophils % 67.2 Lymphocytes % 23.2 Monocytes % 8.0 Eosinophils % 1.2 Basophils % 0.4 - RADIOLOGY Radiology Studies Ordered: Category Date Time Status ABDOMEN & PELVIS CT WITH CONTR [CT] Stat CT Scan 02/13/20 11:20 Ordered - Medications Given in the ED: ED Medications Discontinued Medications Generic Name Dose Route Start Last Admin Trade Name Freq PRN Reason Stop Dose Admin Morphine Sulfate 4 mg 02/13/20 11:19 02/13/20 11:36 Morphine Injection - IVPUSH 02/13/20 11:20 4 mg ONCE ONE Administration Sodium Chloride 1,000 ml 02/13/20 11:30 02/13/20 11:31 Normal Saline - IV 02/13/20 11:31 1,000 ml ONCE ONE Administration <Guillermo Jerez - Last Filed: 02/13/20 12:31> - LABORATORY CBC & Chemistry Diagram: 02/13/20 11:16 02/13/20 11:16 <Cheo Moore - Last Filed: 02/13/20 18:20> Medical Decision Making - Medical Decision Making 54 YOM h/o CVA presents with abdominal pain of 4 days duration. Patient was seen at this ER 4 days prior to arrival for similar symptoms. He was given CT, labs, and morphine. Labs and imagining revealed no abnormalities, and morphine re lieved his pain for a short period. He was discharged to home with instructions to use tylenol to control his pain and follow up with GI. Patient reports that this AM he woke up with similar pain to before but this time of greater intensity. He also mentions that he woke up this AM feeling feverish. He denies CP, SOB, N/V/D, chills. His last BM was this am and he continues to pass flatus. Patient had Temp of 100.1 on arrival after taking tylenol 2 hours prior. Vitals otherwise wnl. Physical exam revealing abdominal tenderness in lower left quadrant. ddx includes but is not limited to: diverticulitis, mesenteric ischemia, collitis, ibs. plan: CT abdomen and pelvis w/ w/o contrast, CBC, CMP. Morphine and Tylenol for pain control. reassess: Imagining and labs wnl, morphine improved pain briefly but after wearing off patient began to complain of pain again. Patient began to ask for more morphine by name. Given no evidence of acute pathology will DC patient to follow up with GI. Dispo: DC to f/u with GI. <Cheo Moore - Last Filed: 02/13/20 18:20> Discharge <Guillermo Jerez - Last Filed: 02/13/20 12:31> - Discharge Information Problems reviewed: Yes <Cheo Moore - Last Filed: 02/13/20 18:20> - Discharge Information Clinical Impression/Diagnosis: Abdominal pain Condition: Stable Disposition: HOME - Follow up/Referral Referrals: Ed Yang [Primary Care Provider] - CallBack Reminder: COVID-19 Swab - Patient Discharge Instructions Additional Instructions: You were seen in the emergency department for abdominal pain. You received labs and imaging, all of which were normal. You were given fluids, and pain medication. Your pain improved for a short period. Given that there were no abnormalities in your labs, imagining, or vital seens you were considered safe for discharge. Please follow up with Dr. Dukes on Wednesday as instructed below. You have a follow up appointment with Dr. Dukes, your stove cleaner, on Wednesday, February 19, 2020 at 3:00PM. Dr. Dukes's new office is in the [facility] at the [facility]. The clinic contact information is as follows: - Address: [address] [place] [address] [id number], [place] [address] - - Website: [email or web address] BE SURE TO BRING YOUR PHOTO ID, INSURANCE CARDS, AND TODAY'S DISCHARGE PACKET TO THE APPOINTMENT
[2020-02-13 11:12] VITALS: BMI 23.7
[2020-02-13] MEDS ORDERED: morphine CARPU-JECT 4 MG/1 ML DISP.SYRIN IVPUSH ONE (11:19)
[2020-02-13] MEDS ORDERED: SODIUM CHLORIDE 0.9% 500 ML INFUS.BAG IV ONE (11:30)
[2020-02-13] MEDS ORDERED: morphine SULFATE 4 MG/ML VIAL ONE (11:35)
[2020-02-13 12:01] LABS: BASO % 0.4 % (0-2.0); EOS % 1.2 % (0-4.5); HEMATOCRIT 42.5 % (35.4-49); LYMPH % 23.2 % (8-40); MCH 28.7 pg (25.7-33.7); MCHC 32.8 g/dl (32.0-35.9); MEAN CELL VOLUME 87.5 fl (80-96); MEAN PLT VOLUME 7.6 fl (7.5-11.1); NEUT % 67.2 % (42.8-82.8); PLATELET COUNT 348 K/MM3 (134-434); RBC 4.86 M/mm3 (4.00-5.60); RDW 13.7 % (11.9-15.9); WHITE BLOOD COUNT 6.6 K/mm3 (4.0-10.0)
[2020-02-13 12:23] LABS: ALBUMIN 4.4 g/dl (3.4-5.0); BILIRUBIN,TOTAL 0.7 mg/dL (0.2-1); CALCIUM 9.8 mg/dL (8.5-10.1); CREATININE 1.4 mg/dL (0.55-1.3); POTASSIUM 3.8 mmol/L (3.5-5.1); TOT PROT 7.6 g/dl (6.4-8.2)
--- NOTE | 2020-02-13 12:44 | PDOC ---
Documentation entered by Darline Byrne SCRIBE, acting as scribe for Wilbur Bailey MD. Wilbur Bailey MD: This documentation has been prepared by the Chavez evans Xhesika, SCRIBE, under my direction and personally reviewed by me in its entirety. I confirm that the documentation accurately reflects all work, treatment, procedures, and medical decision making performed by me. 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 Pt was seen here in the ED 02/10/20 for similar pain, was given pain meds, had labs and CT which were all unremarkable adn dxc home. Pt was feeling well at home without any discomfort until this morning when the pain rturend. endorses fver this morning and took tylenl. he describes it as a constant pain in the LLQ that is non radiating without any chills, n/v, cp, sob, back pain, dysuria, testicular pain. Last BM this morning. Pt endorses some loose stool. Pt states he was using tylenol at home with improvement of symptoms however, this morning his abdomen felt distended, was endorsing pain and he felt hot, prompting his arrival to the ED. Allergies: NKDA Past surgical history: Hernia repair, hx of trach, hx of G-tube PCP: Ed Yang - Physicial Exam PE: 02/13/20 11:35 GENERAL: The patient is awake, alert, and fully oriented, Nontoxic - in no acute distress. HEAD: Normocephalic, atraumatic. EYES: extraocular movements intact, sclera anicteric, conjunctiva clear. ENT: Normal voice, Moist mucous membranes. NECK: Normal range of motion, supple LUNGS: Breath sounds equal, clear to auscultation bilaterally. No wheezes, no rhonchi, no rales. HEART: Regular rate and rhythm, normal S1 and S2 without murmur, rub or gallop. ABDOMEN: Soft, mildly tender LLQ, No guarding, no rebound. No CVA tenderness EXTREMITIES: Normal range of motion, no edema. NEUROLOGICAL: R facial droop, R foot drop PSYCH: Normal mood, normal affect. SKIN: Warm, Dry, normal turgor, - Medical Decision Making 02/13/20 12:02 ddx includes possble enteritis, abd soft will ck labs will consider ct abdomen vs reasessement in light of new fver 02/13/20 15:[address] negativ for acute pathology made an appt for gi fu for th ept Discharge - Discharge Information Problems reviewed: Yes Clinical Impression/Diagnosis: Abdominal pain Qualifiers: Abdominal location: unspecified location Qualified Code(s): R10.9 - Unspecified abdominal pain Condition: Stable Disposition: HOME - Admission No - Follow up/Referral Referrals: Ed Yang [Primary Care Provider] - CallBack Reminder: COVID-19 Swab - Patient Discharge Instructions Additional Instructions: You were seen in the emergency department for abdominal pain. You received labs and imaging, all of which were normal. You were given fluids, and pain medication. Your pain improved for a short period. Given that there were no abnormalities in your labs, imagining, or vital seens you were considered safe for discharge. Please follow up with Dr. Dukes on Wednesday as instructed below. You have a follow up appointment with Dr. Dukes, your shipping services sales representative, on Wednesday, February 19, 2020 at 3:00PM. Dr. Dukes's new office is in the [facility]. The clinic contact information is as follows: - Address: [facility] [facility] [id number], [place] [address] - - Website: [email or web address] BE SURE TO BRING YOUR PHOTO ID, INSURANCE CARDS, AND TODAY'S DISCHARGE PACKET TO THE APPOINTMENT - Post Discharge Activity
[2020-02-13 12:51] LABS: PH,URINE 7.5 (5.0-8.0); URINE APPEARANCE CLEAR; URINE BILIRUBIN NEGATIVE (NEGATIVE); URINE COLOR YELLOW; URINE GLUCOSE (UA) NEGATIVE (NEGATIVE); URINE KETONE NEGATIVE (NEGATIVE); URINE LEUK ESTERASE NEGATIVE (NEGATIVE); URINE NITRITE NEGATIVE (NEGATIVE); URINE PROTEIN NEGATIVE (NEGATIVE); URINE UROBILINOGEN 0.2 mg/dL (0.2-1.0)
[2020-02-13] MEDS ORDERED: FAMOTIDINE 20 MG TABLET PO ONE (15:54)
[2020-02-13] MEDS ORDERED: ACETAMINOPHEN 325 MG TABLET (FP) PO ONE (15:54)
[2020-02-13] MEDS ORDERED: FAMOTIDINE 20 MG TABLET ONE (16:01)
[2020-02-13] MEDS ORDERED: ACETAMINOPHEN 325 MG TABLET (FP) ONE (16:01)
[2020-02-13 16:23] VITALS: BP 155/84; PULSE 82; TEMP 98
== END 2020-02-13 17:17 | disposition home or self-care (01) ==
LOC: SUPCPDRO 10:51 → JER 10:51
PROC: 3E033NZ Introduction of Analgesics, Hypnotics, Sedatives into Peripheral Vein, Percutaneous Approach (ICD-10-PCS; principal; 2020-02-13)
DX: R10.9 Unspecified abdominal pain (principal)
CPT/HCPCS: 36415; 74177-TC; 80053; 81003; 83605; 83690; 85025; 87086; 87186; 99285-25; Q9967; U0003

== ENCOUNTER 2021-01-11 20:08 | Emergency (ER) | payer OTHER ==
[2021-01-11 20:40] VITALS: BP 168/95; PULSE 69; TEMP 98.6; BMI 25.0
[2021-01-11] MEDS ORDERED: LACTATED RINGERS SOLUTION 1000 ML INFUS.BAG IV ONE (21:51)
[2021-01-11] MEDS ORDERED: morphine CARPU-JECT 4 MG/1 ML DISP.SYRIN IVPUSH ONE ×2 (21:51→23:49)
[2021-01-11] MEDS ORDERED: morphine SULFATE 4 MG/ML VIAL ONE (22:22)
[2021-01-11] MEDS ORDERED: MAG HYDROX/AL HYDROX/SIMETH 30 ML UNIT-DOSE CUP PO ONE (22:40)
[2021-01-11] MEDS ORDERED: FAMOTIDINE 20 MG/50 ML IVPB 20 MG/50 ML MG IVPB ONE ×2 (22:40→22:47)
[2021-01-11] MEDS ORDERED: MAG HYDROX/AL HYDROX/SIMETH 30 ML UNIT-DOSE CUP ONE (22:47)
[2021-01-11 22:48] LABS: EOS % 4.1 % (0-4.5); HEMATOCRIT 41.3 % (35.4-49); MCH 28.3 pg (25.7-33.7); MCHC 33.9 g/dl (32.0-35.9); MEAN CELL VOLUME 83.3 fl (80-96); MEAN PLT VOLUME 6.9 fl (7.5-11.1); MONO % 11.5 % (3.8-10.2); NEUT % 43.4 % (42.8-82.8); PLATELET COUNT 286 10^3/uL (134-434); RBC 4.95 M/mm3 (4.00-5.60); WHITE BLOOD COUNT 6.5 K/mm3 (4.0-10.0)
[2021-01-11 22:49] LABS: PH,URINE 6.5 (5.0-8.0); URINE APPEARANCE CLEAR; URINE BILIRUBIN NEGATIVE (NEGATIVE); URINE COLOR YELLOW; URINE GLUCOSE (UA) NEGATIVE (NEGATIVE); URINE KETONE NEGATIVE (NEGATIVE); URINE LEUK ESTERASE NEGATIVE (NEGATIVE); URINE NITRITE NEGATIVE (NEGATIVE); URINE PROTEIN TRACE (NEGATIVE); URINE UROBILINOGEN 0.2 mg/dL (0.2-1.0)
[2021-01-11 23:09] LABS: CHLORIDE 103 mmol/L (98-107); SODIUM 139 mmol/L (136-145)
[2021-01-11 23:13] LABS: BLOOD UREA NITROGEN 20.6 mg/dL (7-18); CALCIUM 9.7 mg/dL (8.5-10.1); GLUCOSE,RANDOM 108 mg/dL (74-106)
[2021-01-11 23:14] LABS: ALBUMIN 4.3 g/dl (3.4-5.0); ANION GAP 7 MMOL/L (8-16); CO2 29 mmol/L (21-32); LIPASE 234 U/L (73-393)
[2021-01-11 23:16] LABS: CREATININE 1.5 mg/dL (0.55-1.3)
[2021-01-11 23:17] LABS: SGOT/AST 28 U/L (15-37); SGPT/ALT 60 U/L (13-61)
[2021-01-11 23:18] LABS: BILIRUBIN,TOTAL 0.5 mg/dL (0.2-1)
[2021-01-11 23:19] LABS: ALK PHOS 73 U/L (45-117)
[2021-01-11] MEDS ORDERED: POTASSIUM CHLORIDE TABS 20 MEQ TABLET.ER (FP) PO ONE (23:48)
[2021-01-11] MEDS ORDERED: MAGNESIUM SULF 50% (8.12 MEQ/2 ML-1 GM VIAL) IVPB ONE (23:58)
[2021-01-12] MEDS ORDERED: morphine SULFATE 4 MG/ML VIAL ONE (00:12)
[2021-01-12] MEDS ORDERED: POTASSIUM CHLORIDE TABS 20 MEQ TABLET.ER (FP) PO ONE (00:12)
[2021-01-12] MEDS ORDERED: MAGNESIUM SULFATE IN WATER 2 GM/50 ML IVPB IVPB ONE (00:13)
== END 2021-01-12 04:13 | disposition home or self-care (01) ==
LOC: JER 20:08
PROC: 3E033NZ Introduction of Analgesics, Hypnotics, Sedatives into Peripheral Vein, Percutaneous Approach (ICD-10-PCS; principal; 2021-01-11)
PROC: 3E033GC Introduction of Other Therapeutic Substance into Peripheral Vein, Percutaneous Approach (ICD-10-PCS; 2021-01-11)
PROC: 3E033GC Introduction of Other Therapeutic Substance into Peripheral Vein, Percutaneous Approach (ICD-10-PCS; 2021-01-11)
DX: R10.84 Generalized abdominal pain (principal); K59.00 Constipation, unspecified
CPT/HCPCS: 36415; 74177-TC; 80053; 81003; 83690; 84484; 85025; 87086; 93005; 93010; 96365; 96375; 99285-25; Q9967

== ENCOUNTER 2021-10-14 15:06 | Emergency (ER) | payer OTHER ==
[2021-10-14 15:12] VITALS: BP 147/82; PULSE 89; TEMP 97.8; BMI 21.1
== END 2021-10-14 18:04 | disposition home or self-care (01) ==
LOC: JERFT 15:06
PROC: 3E023GC Introduction of Other Therapeutic Substance into Muscle, Percutaneous Approach (ICD-10-PCS; principal; 2021-10-14)
DX: L29.9 Pruritus, unspecified (principal)
CPT/HCPCS: 99284-25

== ENCOUNTER 2021-12-23 14:06 | Emergency (ER) | payer OTHER ==
[2021-12-23 14:50] VITALS: BP 145/81; PULSE 74; TEMP 98.4; BMI 21.1
[2021-12-23] MEDS ORDERED: SODIUM CHLORIDE 0.9% 500 ML INFUS.BAG IV ONE (17:36)
[2021-12-23] MEDS ORDERED: ACETAMINOPHEN 1000 MG/100 ML BAG IVPB ONE (17:37)
[2021-12-23] MEDS ORDERED: ACETAMINOPHEN INJECTION 100 ML IVPB ONE (17:43)
[2021-12-23 19:20] LABS: HEMATOCRIT 41.5 % (35.4-49); HEMOGLOBIN 13.5 GM/dL (11.7-16.9); MCHC 32.6 g/dl (32.0-35.9); MEAN CELL VOLUME 85.8 fl (80-96); MEAN PLT VOLUME 7.6 fl (7.5-11.1); PLATELET COUNT 344 10^3/uL (134-434); RBC 4.84 M/mm3 (4.00-5.60); RDW 14.3 % (11.9-15.9); WHITE BLOOD COUNT 7.8 K/mm3 (4.0-10.0)
[2021-12-23 19:43] LABS: CALCIUM 10.3 mg/dL (8.5-10.1)
[2021-12-23 19:45] LABS: ALBUMIN 4.5 g/dl (3.4-5.0); BLOOD UREA NITROGEN 33.8 mg/dL (7-18)
[2021-12-23 19:48] LABS: BILIRUBIN,TOTAL 0.3 mg/dL (0.2-1); CREATININE 1.9 mg/dL (0.55-1.3); TOT PROT 7.6 g/dl (6.4-8.2)
== END 2021-12-23 20:32 | disposition home or self-care (01) ==
LOC: JER 14:06
PROC: 3E0333Z Introduction of Anti-inflammatory into Peripheral Vein, Percutaneous Approach (ICD-10-PCS; principal; 2021-12-23)
DX: R51.9 Headache, unspecified (principal)
CPT/HCPCS: 36415; 80053; 85027; 93005; 93010; 99284-25

== ENCOUNTER 2023-05-18 10:35 | Emergency (ER) | payer OTHER ==
[2023-05-18 10:50] VITALS: BP 134/88; PULSE 84; RESP 18; TEMP 97.6; BMI 24.4
[2023-05-18] MEDS ORDERED: SODIUM CHLORIDE 0.9% 500 ML INFUS.BAG IV ONE (11:32)
[2023-05-18] MEDS ORDERED: ACETAMINOPHEN 1000 MG/100 ML BAG IVPB ONE (11:32)
[2023-05-18] MEDS ORDERED: KETOROLAC TROMETHAMINE 30 MG/1 ML VIAL IVPUSH ONE (11:32)
[2023-05-18] MEDS ORDERED: METOCLOPRAMIDE HCL INJECTION 10 MG/2 ML VIAL IVPUSH ONE (11:33)
[2023-05-18] MEDS ORDERED: KETOROLAC TROMETHAMINE 30 MG/1 ML VIAL ONE (11:47)
[2023-05-18] MEDS ORDERED: METOCLOPRAMIDE HCL INJECTION 10 MG/2 ML VIAL ONE (11:47)
[2023-05-18] MEDS ORDERED: ACETAMINOPHEN INJECTION 100 ML IVPB ONE (11:47)
[2023-05-18 12:24] LABS: BASO % 0.8 % (0-2.0); EOS % 3.1 % (0-4.5); HEMATOCRIT 45.3 % (35.4-49); HEMOGLOBIN 14.6 GM/dL (11.7-16.9); LYMPH % 24.4 % (8-40); MCH 28.4 pg (25.7-33.7); MCHC 32.3 g/dl (32.0-35.9); MEAN CELL VOLUME 88.1 fl (80-96); MEAN PLT VOLUME 8.2 fl (7.5-11.1); MONO % 7.7 % (3.8-10.2); PLATELET COUNT 314 10^3/uL (134-434); RBC 5.15 M/mm3 (4.00-5.60); RDW 13.8 % (11.9-15.9); WHITE BLOOD COUNT 7.6 K/mm3 (4.0-10.0)
[2023-05-18 12:47] LABS: POTASSIUM 5.4 mmol/L (3.5-5.1)
[2023-05-18 12:49] LABS: CALCIUM 9.5 mg/dL (8.5-10.1)
[2023-05-18 12:50] LABS: BLOOD UREA NITROGEN 32.3 mg/dL (7-18)
[2023-05-18 12:53] LABS: CREATININE 1.9 mg/dL (0.55-1.3)
== END 2023-05-18 14:31 | disposition home or self-care (01) ==
LOC: JER 10:35
PROC: 3E033NZ Introduction of Analgesics, Hypnotics, Sedatives into Peripheral Vein, Percutaneous Approach (ICD-10-PCS; principal; 2023-05-18)
PROC: 3E033GC Introduction of Other Therapeutic Substance into Peripheral Vein, Percutaneous Approach (ICD-10-PCS; 2023-05-18)
PROC: 3E0333Z Introduction of Anti-inflammatory into Peripheral Vein, Percutaneous Approach (ICD-10-PCS; 2023-05-18)
DX: R51.9 Headache, unspecified (principal); G43.701 Chronic migraine without aura, not intractable, with status migrainosus
CPT/HCPCS: 36415; 70450-TC; 80048; 85025; 93005; 93010; 99285-25

== ENCOUNTER 2023-06-26 08:24 | Emergency (ER) | payer OTHER ==
[2023-06-26 08:38] VITALS: RESP 18; BMI 25.7
[2023-06-26] MEDS ORDERED: ACETAMINOPHEN 500 MG TABLET (FP) PO ONE (09:30)
[2023-06-26] MEDS ORDERED: IBUPROFEN 400 MG TABLET (FP) PO ONE ×2 (09:30→09:35)
[2023-06-26] MEDS ORDERED: ACETAMINOPHEN 500 MG TABLET (FP) ONE (09:35)
[2023-06-26] MEDS ORDERED: METOCLOPRAMIDE HCL INJECTION 10 MG/2 ML VIAL IVPUSH ONE (11:09)
[2023-06-26] MEDS ORDERED: METOCLOPRAMIDE HCL INJECTION 10 MG/2 ML VIAL ONE (11:11)
[2023-06-26 12:28] VITALS: BP 144/86; PULSE 73; TEMP 98
== END 2023-06-26 12:53 | disposition home or self-care (01) ==
LOC: JER 08:24
PROC: 3E033GC Introduction of Other Therapeutic Substance into Peripheral Vein, Percutaneous Approach (ICD-10-PCS; principal; 2023-06-26)
DX: R51.9 Headache, unspecified (principal)
CPT/HCPCS: 82962; 93005; 93010; 99284-25

== ENCOUNTER 2023-09-26 10:50 | Emergency (ER) | payer OTHER ==
[2023-09-26 10:54] VITALS: BP 143/96; PULSE 77; RESP 18; TEMP 96.9; BMI 25.7
[2023-09-26] MEDS ORDERED: ACETAMINOPHEN INJECTION 100 ML IVPB ONE (11:52)
[2023-09-26] MEDS ORDERED: METOCLOPRAMIDE HCL INJECTION 10 MG/2 ML VIAL ONE (11:52)
[2023-09-26] MEDS: SODIUM CHLORIDE 0.9% 500 ML INFUS.BAG IV ONE (12:16)
[2023-09-26] MEDS: METOCLOPRAMIDE HCL INJECTION 10 MG/2 ML VIAL IVPUSH ONE (12:16)
[2023-09-26] MEDS: ACETAMINOPHEN 1000 MG/100 ML BAG IVPB ONE (12:16)
[2023-09-26] MEDS ORDERED: MAGNESIUM 1GM/D5W - 1 GM/100 ML IVPB IVPB ONE (13:35)
[2023-09-26] MEDS ORDERED: DEXAMETHASONE SOD PHOSPHATE 10 MG/1 ML VIAL ONE (13:35)
[2023-09-26] MEDS: MAGNESIUM 1GM/D5W - 1 GM/100 ML IVPB IVPB ONE (13:51)
[2023-09-26] MEDS: DEXAMETHASONE SOD PHOSPHATE 10 MG/1 ML VIAL IVPUSH ONE (13:51)
[2023-09-26] MEDS ORDERED: KETOROLAC TROMETHAMINE 30 MG/1 ML VIAL IM ONE (16:17)
== END 2023-09-26 16:27 | disposition left against medical advice (07) ==
LOC: JER 10:50
PROC: 3E033GC Introduction of Other Therapeutic Substance into Peripheral Vein, Percutaneous Approach (ICD-10-PCS; principal; 2023-09-26)
PROC: 3E030NZ Introduction of Analgesics, Hypnotics, Sedatives into Peripheral Vein, Open Approach (ICD-10-PCS; 2023-09-26)
PROC: 3E030GC Introduction of Other Therapeutic Substance into Peripheral Vein, Open Approach (ICD-10-PCS; 2023-09-26)
PROC: 3E030GC Introduction of Other Therapeutic Substance into Peripheral Vein, Open Approach (ICD-10-PCS; 2023-09-26)
DX: R51.9 Headache, unspecified (principal)
CPT/HCPCS: 70450-TC; 93005; 93010; 96365; 96375; 99284-25; J0131; J1100

== ENCOUNTER 2024-10-12 15:01 | Emergency (ER) | payer OTHER ==
[2024-10-12 15:21] VITALS: RESP 18; TEMP 98; BMI 25.1
[2024-10-12 16:59] LABS: ABSOLUTE IMMATURE GRANULOCYTES 0.03 x10^3/uL (0.0-0.031); BASOPHILS # 0.04 x10^3/uL (0.01-0.08); EOSINOPHIL % 3.2 % (0.8-7.0); EOSINOPHILS # 0.28 x10^3/uL (0.04-0.54); HEMATOCRIT 43.3 % (40.1-51.0); HEMOGLOBIN 13.7 g/dL (13.7-17.5); MCHC 31.6 g/dl (32.3-36.5); MONOCYTE # 0.61 x10^3/uL (0.30-0.82); MONOCYTE % 6.9 % (5.3-12.2); PLATELET COUNT 277 x10^3/uL (163-337)
[2024-10-12] MEDS ORDERED: KETOROLAC TROMETHAMINE 15 MG/ML VIAL ONE (17:27)
[2024-10-12] MEDS ORDERED: ACETAMINOPHEN INJECTION 100 ML ONE (17:27)
[2024-10-12] MEDS ORDERED: METOCLOPRAMIDE HCL INJECTION 10 MG/2 ML VIAL ONE (17:27)
[2024-10-12 17:32] LABS: POTASSIUM 5.1 mmol/L (3.5-5.1)
[2024-10-12] MEDS: ACETAMINOPHEN 1000 MG/100 ML BAG IVPB ONE (17:36)
[2024-10-12] MEDS: METOCLOPRAMIDE HCL INJECTION 10 MG/2 ML VIAL IVPB ONE (17:36)
[2024-10-12] MEDS: KETOROLAC TROMETHAMINE 15 MG/ML VIAL IVPUSH ONE (17:36)
[2024-10-12] MEDS: SODIUM CHLORIDE 1,000 ML IV STA (17:36)
[2024-10-12 17:41] LABS: CALCIUM 9.5 mg/dL (8.5-10.1)
[2024-10-12 17:42] LABS: ALBUMIN 4.2 g/dl (3.4-5.0); BLOOD UREA NITROGEN 38.6 mg/dL (7-18)
[2024-10-12 17:45] LABS: CREATININE 1.8 mg/dL (0.55-1.3)
[2024-10-12 17:46] LABS: BILIRUBIN,TOTAL 0.3 mg/dL (0.2-1); TOT PROT 6.9 g/dl (6.4-8.2)
[2024-10-12 19:12] VITALS: BP 138/84; PULSE 61
== END 2024-10-12 19:27 | disposition home or self-care (01) ==
LOC: JER 15:01
PROC: 3E033NZ Introduction of Analgesics, Hypnotics, Sedatives into Peripheral Vein, Percutaneous Approach (ICD-10-PCS; principal; 2024-10-12)
PROC: 3E0333Z Introduction of Anti-inflammatory into Peripheral Vein, Percutaneous Approach (ICD-10-PCS; 2024-10-12)
PROC: 3E033GC Introduction of Other Therapeutic Substance into Peripheral Vein, Percutaneous Approach (ICD-10-PCS; 2024-10-12)
PROC: 3E0337Z Introduction of Electrolytic and Water Balance Substance into Peripheral Vein, Percutaneous Approach (ICD-10-PCS; 2024-10-12)
DX: R51.9 Headache, unspecified (principal); R53.1 Weakness; H53.9 Unspecified visual disturbance
CPT/HCPCS: 36415; 80053; 85025; 93005; 93010; 96361; 96374; 96375; 99284-25; J0131

== ENCOUNTER 2024-10-27 10:47 | Emergency (ER) | payer OTHER ==
[2024-10-27 11:21] VITALS: BMI 25.1
[2024-10-27] MEDS ORDERED: METOCLOPRAMIDE HCL INJECTION 10 MG/2 ML VIAL ONE (11:35)
[2024-10-27] MEDS ORDERED: ACETAMINOPHEN INJECTION 100 ML ONE (11:35)
[2024-10-27 11:41] LABS: ABSOLUTE IMMATURE GRANULOCYTES 0.03 x10^3/uL (0.0-0.031); BASOPHILS # 0.02 x10^3/uL (0.01-0.08); EOSINOPHILS # 0.19 x10^3/uL (0.04-0.54); HEMATOCRIT 42.5 % (40.1-51.0); HEMOGLOBIN 13.2 g/dL (13.7-17.5); MCHC 31.1 g/dl (32.3-36.5); MEAN CELL VOLUME 90.6 fl (79.0-92.2); MEAN PLT VOLUME 9.1 fl (9.4-12.4); MONOCYTE # 0.49 x10^3/uL (0.30-0.82); MONOCYTE % 7.8 % (5.3-12.2); PLATELET COUNT 298 x10^3/uL (163-337); RDW 13.2 % (12.2-16.4)
[2024-10-27] MEDS: SODIUM CHLORIDE 0.9% 500 ML INFUS.BAG IV ONE (11:46)
[2024-10-27] MEDS: METOCLOPRAMIDE HCL INJECTION 10 MG/2 ML VIAL IVPB ONE (11:46)
[2024-10-27] MEDS: ACETAMINOPHEN 1000 MG/100 ML BAG IVPB ONE (11:46)
[2024-10-27 12:04] LABS: POTASSIUM 5.3 mmol/L (3.5-5.1)
[2024-10-27 12:06] LABS: BLOOD UREA NITROGEN 35.6 mg/dL (7-18); CALCIUM 10.1 mg/dL (8.5-10.1)
[2024-10-27 12:07] LABS: ALBUMIN 4.1 g/dl (3.4-5.0)
[2024-10-27 12:10] LABS: CREATININE 1.7 mg/dL (0.55-1.3)
[2024-10-27 12:11] LABS: BILIRUBIN,TOTAL 0.4 mg/dL (0.2-1); TOT PROT 6.9 g/dl (6.4-8.2)
[2024-10-27] MEDS ORDERED: KETOROLAC TROMETHAMINE 15 MG/ML VIAL ONE (14:13)
[2024-10-27] MEDS: KETOROLAC TROMETHAMINE 15 MG/ML VIAL IVPUSH ONE (14:17)
[2024-10-27 16:20] VITALS: BP 128/68; PULSE 68; RESP 18; TEMP 98.1
== END 2024-10-27 16:21 | disposition home or self-care (01) ==
LOC: JER 10:47
PROC: 3E033NZ Introduction of Analgesics, Hypnotics, Sedatives into Peripheral Vein, Percutaneous Approach (ICD-10-PCS; principal; 2024-10-27)
PROC: 3E0333Z Introduction of Anti-inflammatory into Peripheral Vein, Percutaneous Approach (ICD-10-PCS; 2024-10-27)
PROC: 3E033GC Introduction of Other Therapeutic Substance into Peripheral Vein, Percutaneous Approach (ICD-10-PCS; 2024-10-27)
DX: R51.9 Headache, unspecified (principal); R94.31 Abnormal electrocardiogram [ECG] [EKG]; G89.29 Other chronic pain
CPT/HCPCS: 36415; 80053; 83735; 85025; 93005; 93010; 96374; 96375; 99284-25; J0131